=== PATIENT | male | born 1985 | race African-American/Black ===

== ENCOUNTER 2016-12-01 07:23 | Emergency (ER) | payer BC ==
[2016-12-01 07:30] VITALS: BMI 39.5
--- NOTE | 2016-12-01 09:08 | PDOC ---
History of Present Illness - General History Source: Patient Exam Limitations: No Limitations - History of Present Illness Initial Comments: 12/01/16 09:20 The patient is a 31 year old male, with a significant past medical history of HTN, who presents to the emergency department with fever, chills, chest tightness with congestion, shortness of breath, sore throat, and cough. He reports that he had a similar episode last week of these symptoms but this time around it was accompanied with fever and chills. 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 He notes that his fever has been as high as 99.8 degrees F. He describes his cough as productive of a yellow/green sputum. The patient denies headache and dizziness. Denies nausea, vomit, diarrhea and constipation. Allergies: None Past surgical history: None reported Social history:Cigarette use ( pack a day). <Piter Torres - Last Filed: 12/01/16 11:39> - General History Source: Patient Exam Limitations: No Limitations <Pallavi Cochran - Last Filed: 12/02/16 08:05> - General Chief Complaint: Cold Symptoms Stated Complaint: FEVER, RESPIRATORY Time Seen by Provider: 12/01/16 07:52 Past History <Piter Torres - Last Filed: 12/01/16 11:39> - Past Medical History HTN: Yes - Immunization History Td Vaccination: Yes Immunization Up to Date: Yes - Psycho/Social/Smoking Cessation Hx Anxiety: No Suicidal Ideation: No Smoking Status: Yes Smoking History: Current every day smoker Number of Cigarettes Smoked Daily: 10 Information on smoking cessation initiated: Yes 'Breaking Loose' booklet given: 12/01/16 Hx Alcohol Use: No Drug/Substance Use Hx: No Substance Use Type: None <Pallavi Cochran - Last Filed: 12/02/16 08:05> - Past Medical History Allergies/Adverse Reactions: Allergies Allergy/AdvReac Type Severity Reaction Status Date / Time No Known Allergies Allergy Verified 12/01/16 07:30 Home Medications: Ambulatory Orders Albuterol 0.083% Nebulizer Inez [Ventolin 0.083% Nebulizer Soln -] 1 neb NEB Q6H #30 vial 12/01/16 Albuterol Sulfate Inhaler - [Ventolin HFA Inhaler -] 1 - 2 inh PO QID PRN #1 inhaler 12/01/16 Amlodipine Besylate [Norvasc -] 0 mg PO ASDIR 12/01/16 Azithromycin [Zithromax 250mg Tablets -] 250 mg PO UTDICT #6 tab 12/01/16 Losartan Potassium 0 mg PO ASDIR 12/01/16 Nebulizer/Compressor [Comp-Air Elite Comp Nebulizer] 1 each MC ASDIR PRN #1 each 12/01/16 Prednisone [Deltasone -] 60 mg PO DAILY #12 tablet 12/01/16 Review of Systems - Review of Systems Able to Perform ROS?: Yes Comments:: 12/01/16 09:20 GENERAL/CONSTITUTIONAL: (+) fever and chills. No weakness. HEAD, EYES, EARS, NOSE AND THROAT: (+) Sore throat. No change in vision. No ear pain or discharge. CARDIOVASCULAR: (+) Chest congestion and shortness of breath RESPIRATORY: (+) Cough. No hemoptysis. GASTROINTESTINAL: No nausea, vomiting, diarrhea or constipation. GENITOURINARY: No dysuria, frequency, or change in urination. MUSCULOSKELETAL: No joint or muscle swelling or pain. No neck or back pain. SKIN: No rash NEUROLOGIC: No headache, vertigo, loss of consciousness, or change in strength/ sensation. ENDOCRINE: No increased thirst. No abnormal weight change HEMATOLOGIC/LYMPHATIC: No anemia, easy bleeding, or history of blood clots. ALLERGIC/IMMUNOLOGIC: No hives or skin allergy. <Piter Torres - Last Filed: 12/01/16 11:39> *Physical Exam - Vital Signs Last Vital Signs Temp Pulse Resp BP Pulse Ox 100.5 F H 99 H 18 152/85 97 12/01/16 07:29 12/01/16 07:29 12/01/16 07:29 12/01/16 07:29 12/01/16 07:29 - Physical Exam Comments: 12/01/16 09:20 GENERAL: Awake, alert, and fully oriented, in no acute distress HEAD: No signs of trauma, normocephalic, atraumatic EYES: PERRLA, EOMI, sclera anicteric, conjunctiva clear ENT: Auricles normal inspection, hearing grossly normal, nares patent, oropharynx clear without exudates. Moist mucosa NECK: Normal ROM, supple, no lymphadenopathy, JVD, or masses LUNGS: (+) Wheezing left lung field. No distress, speaks full sentences. HEART: Regular rate and rhythm, normal S1 and S2, no murmurs, rubs or gallops, peripheral pulses normal and equal bilaterally. ABDOMEN: Soft, nontender, normoactive bowel sounds. No guarding, no rebound. No masses EXTREMITIES: Normal inspection, Normal range of motion, no edema. No clubbing or cyanosis. NEUROLOGICAL: Cranial nerves II through XII grossly intact. Normal speech, normal gait, no focal sensorimotor deficits SKIN: Warm, Dry, normal turgor, no rashes or lesions noted. <Piter Torres - Last Filed: 12/01/16 11:39> - Vital Signs Last Vital Signs Temp Pulse Resp BP Pulse Ox 100.5 F H 99 H 18 152/85 97 12/01/16 07:29 12/01/16 07:29 12/01/16 07:29 12/01/16 07:29 12/01/16 07:29 <Pallavi Cochran - Last Filed: 12/02/16 08:05> ED Treatment Course - LABORATORY CBC & Chemistry Diagram: 12/01/16 09:40 12/01/16 09:40 - RADIOLOGY Radiograph Interpretation: 12/01/16 11:39 Chest X-Ray Reviewed by: Dr. Bhavani Benito Impression: Unremarkable examination without evidence of acute lung disease <Piter Torres - Last Filed: 12/01/16 11:39> - LABORATORY CBC & Chemistry Diagram: 12/01/16 09:40 12/01/16 09:40 <Pallavi Cochran - Last Filed: 12/02/16 08:05> Medical Decision Making - Medical Decision Making A portion of this note was documented by scribe services under my direction. I have reviewed the details of the note, within reason, and agree with the documentation with the following case summary and management plan written by me. Nursing documentation reviewed and incorporated into medical decision making 12/01/16 10:59 This patient is a 31-year-old male with a history of hypertension presented to emergency department with a complaint of shortness of breath and cough. Patient states that he had an episode similar to this week ago and it resolved. Over the last 2 days he has noted intermittent fevers and chills, cough productive of a yellow sputum. No chest pain. Patient does have chest tightness and wheezing. Patient does smoke (one half of a pack every other day) disease. This patient denies a history of asthma or COPD. Patient states he's had no ill contacts. No recent travel. Differential diagnosis: Bronchitis, pneumonia, COPD, asthma. Will do basic labs. Will do chest x-ray. Will give prednisone Will give a nebulizer her Last patient follow up with primary care physician Laboratory Tests 12/01/16 12/01/16 09:40 09:40 WBC 14.9 H D Hgb 14.8 Hct 45.0 Plt Count 189 Sodium 135 L Potassium 4.6 Chloride 100 BUN 15 Creatinine 1.4 H D Random Glucose 114 H Chest x-ray: Negative 12/01/16 12:10 Upon reassessment, patient states he feels better. Repeat examination: scattered respiratory rhonchi. Discharge home on prednisone, antibiotics, nebs, MDI inhaler. Will ask patient to follow up with his primary care physician within one week Return to the ER for any other concerns or complaints <Pallavi Cochran - Last Filed: 12/02/16 08:05> *DC/Admit/Observation/Transfer - Attestations Scribe Attestion: 12/01/16 09:21 Documentation prepared by Piter Torres, acting as medical scheduler for Pallavi Cochran MD <Piter Torres - Last Filed: 12/01/16 11:39> - Discharge Dispostion Admit: No <Pallavi Cochran - Last Filed: 12/02/16 08:05> Diagnosis at time of Disposition: Bronchitis Asthma Qualifiers: Asthma severity: unspecified severity Asthma complication type: with acute exacerbation Qualified Code(s): J45.901 - Unspecified asthma with (acute) exacerbation - Discharge Dispostion Disposition: HOME Condition at time of disposition: Stable - Prescriptions Prescriptions: Nebulizer/Compressor [Comp-Air Elite Comp Nebulizer] 1 each MC ASDIR PRN #1 each PRN Reason: congestion Prednisone [Deltasone -] 60 mg PO DAILY #12 tablet Albuterol 0.083% Nebulizer Inez [Ventolin 0.083% Nebulizer Soln -] 1 neb NEB Q6H #30 vial Albuterol Sulfate Inhaler - [Ventolin HFA Inhaler -] 1 - 2 inh PO QID PRN #1 inhaler PRN Reason: Wheezing Azithromycin [Zithromax 250mg Tablets -] 250 mg PO UTDICT #6 tab - Referrals Referrals: Alexei Gallegos MD [Primary Care Provider] - - Patient Instructions Printed Discharge Instructions: DI for Viral Upper Respiratory Infection -- Adult, DI for Acute Bronchitis, DI for Asthma -- Adult Additional Instructions: Mr. Roquetton, Thank you for coming into the emergency Department today. Please take medications as prescribed. Please monitor herself for difficulty breathing, chest tightness, shortness of breath. Please return to emergency department for any other concerns or complaint. You should follow up with your primary care physician within 2 or 3 days - Post Discharge Activity Work/School Note: Back to Work
[2016-12-01] MEDS ORDERED: ALBUTEROL SO4 2.5/IPRATROPIUM 0.5 INH SOL 3 ML VIAL.NEB. NEB ONE ×2 (09:12→09:45)
[2016-12-01] MEDS ORDERED: predniSONE 20 MG TABLET (UD) PO ONE (09:12)
[2016-12-01 09:45] LABS: BASOPHIL 0.7 % (0-2.0); EOSINOPHIL 2.7 % (0-4.5); MCH 28.6 pg (25.7-33.7); MEAN CELL VOLUME 86.8 fl (80-96); MEAN PLT VOLUME 8.2 fl (7.5-11.1); NEUTROPHILS 70.9 % (42.8-82.8); PLATELET COUNT 189 K/MM3 (134-434); RDW 13.1 % (11.9-15.9); WHITE BLOOD COUNT 14.9 K/mm3 (4.0-10.0)
[2016-12-01] MEDS ORDERED: predniSONE 20 MG TABLET (UD) ONE (09:45)
[2016-12-01 10:08] LABS: ALBUMIN 3.7 g/dl (3.4-5.0); BILIRUBIN,TOTAL 0.5 mg/dL (0.2-1.0); CALCIUM 9.1 mg/dL (8.5-10.1); COCKROFT - GAULT 126.35; CREATININE 1.4 mg/dL (0.7-1.3); TOT PROT 7.5 g/dl (6.4-8.2)
[2016-12-01 12:45] VITALS: BP 155/90; PULSE 82; TEMP 98.2
== END 2016-12-01 12:45 | disposition home or self-care (01) ==
LOC: JER 07:23
PROC: 3E0F7GC Introduction of Other Therapeutic Substance into Respiratory Tract, Via Natural or Artificial Opening (ICD-10-PCS; principal; 2016-12-01)
DX: J45.901 Unspecified asthma with (acute) exacerbation (principal); J40 Bronchitis, not specified as acute or chronic; I10 Essential (primary) hypertension
CPT/HCPCS: 36415; 71020-TC; 80053; 85025; 99283-25

== ENCOUNTER 2017-05-30 22:31 | Inpatient (IN) | payer BC ==
[2017-05-30 22:41] VITALS: BMI 39.5
--- NOTE | 2017-05-30 23:18 | PDOC ---
History of Present Illness - General Chief Complaint: Pain Stated Complaint: PAIN Time Seen by Provider: 05/30/17 23:08 History Source: Patient Exam Limitations: No Limitations - History of Present Illness Initial Comments: This is a 32 YOM with h/o HTN (on amlodipine and losartan) and tobacco use (1/2 ppd smoker) who p/w left lower leg pain for the past day. He notes sharp shooting pain from the back of the left knee radiating down the entire back of the leg. He had swelling of the entire left lower leg yesterday as well. He has had similar symptoms once previously but this was self limited and resolved without medical intervention or consultation, but this time it is worse and lasting longer. He notes a fleeting episode of chest pain two days ago, a random episode of dizziness while at work over the past couple of days (very atypical for him), as well as a strange episode of bilateral arm pain which awoke him from sleep two weeks ago, but he denies any current chest pain. He also denies any current or recent SOB, palpitations, headache, LOC, fever, chills, nausea, vomiting, diarrhea, cough, sore throat, or other symptoms. His father has an extensive history of blood clots in the legs which traveled to the lungs. His father's condition is debilitating enough it caused him to retire early for medical reasons. The patient has never been worked up or diagnosed with any clotting disorder. He denies any hormone use or any recent travel/immobility/injuries/surgeries. Past History - Past Medical History Allergies/Adverse Reactions: Allergies Allergy/AdvReac Type Severity Reaction Status Date / Time lactose AdvReac Verified 06/07/17 18:40 Home Medications: Ambulatory Orders Amlodipine Besylate [Norvasc -] 10 mg PO DAILY 05/30/17 Losartan Potassium [Cozaar -] 50 mg PO BID #60 tablet 06/07/17 Warfarin Na [Coumadin -] 7.5 mg PO DAILY@1800 #30 tablet 06/07/17 COPD: No HTN: Yes - Immunization History Td Vaccination: Yes Immunization Up to Date: Yes - Suicide/Smoking/Psychosocial Hx Smoking Status: Yes Smoking History: Current every day smoker Number of Cigarettes Smoked Daily: 10 Information on smoking cessation initiated: No 'Breaking Loose' booklet given: 12/01/16 Hx Alcohol Use: No Drug/Substance Use Hx: No Substance Use Type: None Review of Systems - Review of Systems Constitutional: No: Chills, Fever, Unexplained wgt Loss HEENTM: No: Nose Congestion, Throat Pain Respiratory: No: Cough, Shortness of Breath Cardiac (ROS): Yes: Chest Pain (resolved). No: Palpitations ABD/GI: No: Constipated, Diarrhea, Nausea, Vomiting : No: Burning, Dysuria Musculoskeletal: Yes: Other (LLE pain and swelling). No: Back Pain, Neck Pain Integumentary: No: Bruising, Rash Neurological: Yes: Dizziness (resolved). No: Headache, Numbness, Tingling, Weakness Endocrine: No: Unexplained Weight Gain, Unexplained Weight Loss *Physical Exam - Vital Signs Last Vital Signs Temp Pulse Resp BP Pulse Ox 98.2 F 90 18 152/93 99 05/30/17 22:39 05/30/17 22:39 05/30/17 22:39 05/30/17 22:39 05/30/17 22:39 - Physical Exam General Appearance: Yes: Nourished, Appropriately Dressed, Obese, Other (alert and appropriate adult male who is conversive, pleasant, accompanied by significant other). No: Apparent Distress HEENT: positive: EOMI, Normal Voice, Hearing Grossly Normal. negative: Scleral Icterus (R), Scleral Icterus (L), Nasal Congestion Neck: positive: Trachea midline, Supple. negative: Tender, Rigid Respiratory/Chest: positive: Lungs Clear, Normal Breath Sounds. negative: Respiratory Distress, Crackles, Rhonchi, Stridor, Wheezing Cardiovascular: positive: Regular Rhythm, Regular Rate. negative: Murmur Vascular Pulses: Femoral (R): 2+, Femoral (L): 2+, Dorsalis-Pedis (R): 2+, Doralis-Pedis (L): 2+ Gastrointestinal/Abdominal: positive: Normal Bowel Sounds, Soft. negative: Tender, Organomegaly, Pulsatile Mass, Guarding Musculoskeletal: positive: Normal Inspection. negative: Decreased Range of Motion, Vertebral Tenderness Extremity: positive: Normal Capillary Refill, Normal Inspection, Normal Range of Motion, Other (mild left calf tenderness to palpation, no palpable cord). negative: Tender, Cyanosis, Swelling Integumentary: positive: Normal Color, Dry, Warm. negative: Erythema, Rash, Bruising Neurologic: positive: physicist cryogenics II-XII NML intact, Fully Oriented, Alert, Normal Mood/ Affect, Normal Response, Motor Strength 11/06 ED Treatment Course - LABORATORY CBC & Chemistry Diagram: 06/07/17 06:50 06/07/17 06:50 - RADIOLOGY Radiology Studies Ordered: Category Date Time Status DUPLEX VASCUL US-1 LEG [US] Stat Ultrasound 05/30/17 23:09 Ordered Medical Decision Making - Medical Decision Making 32 YOM with family history of extensive DVT and PE who presents c/o LLE pain/ swelling. VS within normal limits, left popliteal and posterior calf ttp on exam which is mild. DDX IBNLT DVT, mackey cyst, stress fracture, muscle strain/sprain, claudication, etc. Ordered is Duplex study LLE. 05/30/17 23:39 Spoke with ultrasound who notes extensive DVT LLE from popliteal fossa extending distally. Patient will be admitted for monitoring, further workup, heparin, additional labs drawn. Started Heparin bolus + drip, did EKG. 05/31/17 00:[address] Simmons's office and page is sent to on-call. 05/31/17 01:[address] Simmons who agrees with plan for admission to IP Telemetry. Admission order placed as noted above. 05/31/17 02:22 Pt had fleeting episode of diffuse itchiness after returning from CTA. Benadryl 50 mg IV ordered and given. Awaiting official CTA results. Numerous pulmonary emboli noted on chest CTA. Patient awaiting tele bed. Care signed out to oncoming resident at the end of my shift. *DC/Admit/Observation/Transfer Diagnosis at time of Disposition: DVT (deep venous thrombosis) Qualifiers: DVT location: lower extremity Affected thrombotic vein of extremity: popliteal Chronicity: unspecified Laterality: left Qualified Code(s): I82.432 - Acute embolism and thrombosis of left popliteal vein - Discharge Dispostion Condition at time of disposition: Guarded Admit: Yes - Prescriptions - Referrals - Patient Instructions - Post Discharge Activity
[2017-05-31] MEDS ORDERED: HEPARIN NA (PORCINE) 5,000 UNITS/ML 1ML VIAL IVPUSH PRN (00:07)
[2017-05-31] MEDS ORDERED: HEPARIN INFUSION - 25,000 UNITS/500 ML INFUS.BAG IVPB ONE (00:13)
[2017-05-31] MEDS: HEPARIN - 25,000 UNIT in SODIUM CHLORIDE 495 ML IV SCH ×2 (00:24→10:44)
[2017-05-31 00:35] LABS: BASOPHIL 0.5 % (0-2.0); EOSINOPHIL 4.8 % (0-4.5); MCH 29.8 pg (25.7-33.7); MCHC 33.9 g/dl (32.0-35.9); NEUTROPHILS 54.5 % (42.8-82.8); PLATELET COUNT 191 K/MM3 (134-434); RDW 13.9 % (11.9-15.9); WHITE BLOOD COUNT 10.8 K/mm3 (4.0-10.0)
[2017-05-31 00:58] LABS: ALBUMIN 3.7 g/dl (3.4-5.0); ANION GAP 10 (8-16); BILIRUBIN,TOTAL 0.3 mg/dL (0.2-1.0); CALCIUM 8.8 mg/dL (8.5-10.1); CO2 28 mmol/L (21-32); CREATININE 1.1 mg/dL (0.7-1.3); GLUCOSE,RANDOM 119 mg/dL (74-106); SGPT/ALT 25 U/L (12-78); TOT PROT 7.1 g/dl (6.4-8.2)
[2017-05-31 00:59] LABS: ALK PHOS 75 U/L (45-117); SGOT/AST 20 U/L (15-37)
[2017-05-31 01:11] LABS: INR 1.06 (0.82-1.09)
--- NOTE | 2017-05-31 08:06 | CON.NEP ---
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) History of Recent Travel: No Home Medications - Allergies Allergies/Adverse Reactions: Allergies Allergy/AdvReac Type Severity Reaction Status Date / Time No Known Allergies Allergy Verified 05/30/17 22:37 - Home Medications Home Medications: Ambulatory Orders Amlodipine Besylate [Norvasc -] 10 mg PO DAILY 05/30/17 Losartan Potassium [Cozaar -] 50 mg PO DAILY 05/30/17 Review of Systems Unable to obtain ROS, reason: no CP no SOB Nephrology Consult - Height Height: 5 ft 8 in - Weight Weight: 260 lb - BMI Body Mass Index (BMI): 39.5 - Lab Results CBC,BMP: CBC, BMP 05/31/17 00:01 05/31/17 00:01 Anion Gap: Anion Gap Anion Gap 10 (8-16) 05/31/17 00:01 - Imaging Ultrasound: Report Reviewed - Physical Examination Vital Signs: Vital Signs Temperature 98.2 F 05/30/17 22:39 Pulse Rate 90 05/30/17 22:39 Respiratory Rate 18 05/30/17 22:39 Blood Pressure 152/93 05/30/17 22:39 O2 Sat by Pulse Oximetry (%) 99 05/30/17 22:39 Edema: LLE: 2+ Assessment/Plan 32 with DVT Add hypercoagulable wup to first admission labs ON IV heparin ASsess is he would be a candidate for eliquis MUST STOP SMOKING HTN REsume losartan and norvasc Space out meds one drug must be dosed at night Check UA
--- NOTE | 2017-05-31 09:03 | HP ---
Admitting History and Physical - Primary Care Physician PCP: Es Sanders - Admission Chief Complaint: LEG SWELLING History of Present Illness: left calf pain and swelling for 2 days, has been otherwise in his usual state of health. 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 History of Recent Travel: No Home Medications - Allergies Allergies/Adverse Reactions: Allergies Allergy/AdvReac Type Severity Reaction Status Date / Time No Known Allergies Allergy Verified 05/30/17 22:37 - Home Medications Home Medications: Ambulatory Orders Amlodipine Besylate [Norvasc -] 10 mg PO DAILY 05/30/17 Losartan Potassium [Cozaar -] 50 mg PO DAILY 05/30/17 Family Disease History - Family Disease History Family Disease History: Other: Father (pulmonary embolism) Review of Systems - Review of Systems Constitutional: reports: No Symptoms HENT: reports: Gingival Bleeding Neck: reports: No Symptoms Cardiovascular: reports: No Symptoms Respiratory: reports: No Symptoms Gastrointestinal: reports: No Symptoms Genitourinary: reports: No Symptoms Musculoskeletal: reports: Extremity Pain (left leg) Endocrine: reports: No Symptoms Hematology/Lymphatic: reports: No Symptoms Psychiatric: reports: No Symptoms Physical Examination Vital Signs: Vital Signs Temperature 98.0 F 05/31/17 08:29 Pulse Rate 80 05/31/17 08:29 Respiratory Rate 20 05/31/17 08:29 Blood Pressure 155/90 05/31/17 08:29 O2 Sat by Pulse Oximetry (%) 99 05/31/17 08:29 Constitutional: Yes: Well Nourished, Calm Eyes: Yes: EOM Intact HENT: Yes: Normocephalic Neck: Yes: Trachea Midline Cardiovascular: Yes: Regular Rate and Rhythm Respiratory: Yes: CTA Bilaterally Gastrointestinal: Yes: Normal Bowel Sounds, Soft Renal/: Yes: WNL Edema: Yes Edema: LLE: 1+ (pedal and calf swelling with tenderness) Peripheral Pulses WNL: Yes Peripheral Pulses: Left Doralis Pedis: 2+, Right Dorsalis Pedis: 2+ Integumentary: Yes: WNL Neurological: Yes: WNL ...Motor Strength: WNL Psychiatric: Yes: WNL Labs: CBC, BMP 05/31/17 00:01 05/31/17 00:01 Abnormal Lab Results 05/31/17 05/31/17 05/31/17 00:01 00:01 00:01 WBC 10.8 H Eosinophils % 4.8 H PT with INR 12.00 H D-Dimer 2117 H Random Glucose 05/31/17 00:01 WBC Eosinophils % PT with INR D-Dimer Random Glucose 119 H Imaging - Results Ultrasound: Report Reviewed Problem List - Problems (1) DVT (deep venous thrombosis) Code(s): I82.409 - ACUTE EMBOLISM AND THOMBOS UNSP DEEP VN UNSP LOWER EXTREMITY Qualifiers: DVT location: lower extremity Affected thrombotic vein of extremity: popliteal Chronicity: unspecified Laterality: left Qualified Code(s): I82.432 - Acute embolism and thrombosis of left popliteal vein (2) Essential hypertension Code(s): I10 - ESSENTIAL (PRIMARY) HYPERTENSION Assessment/Plan iv heparin and hypercoagulable work up-unprovoked DVT and strong family h/o clots hematology evaluation for warfarin vs. NOAC f/up chest ct r/o PE MRSA screen in view of h/o MRSA skin abscess-no wound at present
[2017-05-31] MEDS: amLODIPine BESYLATE 10 MG TABLET (FP) PO SCH (10:02)
--- NOTE | 2017-05-31 13:23 | PN ---
Teaching Attending Note Name of Resident: Mook Alba ATTENDING PHYSICIAN STATEMENT I saw and evaluated the patient. I reviewed the resident's note and discussed the case with the resident. I agree with the resident's findings and plan as documented. PULMONARY IMP BILATERAL PULMONARY EMBOLI/DVT ? UNPROVOKED HTN LIKELY OSAS SMOKER PLAN AC ECHOCARDIOGRAM CARDIAC ENZYMES W/U FOR HYPERCOAGULABLE STATE SLEEP SCREEN SMOKING CESSATION COUNSELED DR RODRIGUEZ Problem List - Problems (1) Tobacco abuse Code(s): Z72.0 - TOBACCO USE (2) Tobacco abuse counseling Code(s): Z71.6 - TOBACCO ABUSE COUNSELING (3) DVT (deep venous thrombosis) Code(s): I82.409 - ACUTE EMBOLISM AND THOMBOS UNSP DEEP VN UNSP LOWER EXTREMITY Qualifiers: DVT location: lower extremity Affected thrombotic vein of extremity: popliteal Chronicity: unspecified Laterality: left Qualified Code(s): I82.432 - Acute embolism and thrombosis of left popliteal vein (4) Pulmonary embolism Code(s): I26.99 - OTHER PULMONARY EMBOLISM WITHOUT ACUTE COR PULMONALE
--- NOTE | 2017-05-31 14:01 | EKG ---
Test Reason : Blood Pressure : / mmHG Vent. Rate : 080 BPM Atrial Rate : 357 BPM P-R Int : 000 ms QRS Dur : 094 ms QT Int : 376 ms P-R-T Axes : 075 015 016 degrees QTc Int : 433 ms SINUS RHYTHM NONSPECIFIC ST ABNORMALITY WHEN COMPARED WITH ECG OF 17-JUL-2013 23:31, NO SIGNIFICANT CHANGE WAS FOUND Confirmed by MISTI MARTÍNEZ MD ([id number]) on 05/31/2017 2:00:38 PM Referred By: Confirmed By:MISTI MARTÍNEZ MD
--- NOTE | 2017-05-31 17:55 | CON.PULM ---
Consult Consult Specialty:: Pulmonary Reason for Consultation:: we were called to evaluate the patient for DVT and b/ l PE - History of Present Illness Chief Complaint: Right leg swelling History of Present Illness: The patient is a 32 yo m w/ PMH HTN who comes into the ED c/o right leg pain and swelling for the past 1 day. In the ED, doppler of the LE showed DVT in the popliteal and posterior tibial veins. CTA of the chest showed B/L pulmonary embolisms worse in the lower lobes. The patient has been placed on a heparin drip and admited for furhter workup. On examination, patient states he feels "fine" without any complaints. The pain in his leg which he says is improved after administration of percocet. Patient denies CP, SOB, recent travel, recent surgery, recent immobility. 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 Patient's father had an extensive history of blood clots and pulmonary embolisms, necessitating placement of an IVC filter. 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: drafter construction History of Recent Travel: No Home Medications - Allergies Allergies/Adverse Reactions: Allergies Allergy/AdvReac Type Severity Reaction Status Date / Time No Known Allergies Allergy Verified 05/30/17 22:37 - Home Medications Home Medications: Ambulatory Orders Amlodipine Besylate [Norvasc -] 10 mg PO DAILY 05/30/17 Losartan Potassium [Cozaar -] 50 mg PO DAILY 05/30/17 Family Disease History - Family Disease History Family Disease History: Other: Father (pulmonary embolism, DVT) Review of Systems - Review of Systems Constitutional: denies: Chills, Fever, Malaise, Weakness Cardiovascular: denies: Chest Pain, Palpitations, Shortness of Breath Respiratory: denies: Cough, Hemoptysis, SOB Gastrointestinal: denies: Abdominal Pain, Diarrhea, Nausea, Vomiting Physical Exam Vital Sings: Vital Signs Temperature 98.0 F 05/31/17 14:54 Pulse Rate 79 05/31/17 14:54 Respiratory Rate 18 05/31/17 14:54 Blood Pressure 145/80 05/31/17 14:54 O2 Sat by Pulse Oximetry (%) 98 05/31/17 14:54 Constitutional: Yes: Well Nourished, No Distress, Calm HENT: Yes: Atraumatic, Normocephalic Neck: Yes: Supple, Trachea Midline Cardiovascular: Yes: Regular Rate and Rhythm, S1, S2. No: JVD, Gallop, Murmur, Rub, S3, S4 Respiratory: Yes: Regular, CTA Bilaterally ...Breath Sounds: AURELIA Clear, LLL Clear, RUL Clear, RML Clear, RLL Clear Extremities: Yes: Calf Tenderness, Other (warmth and swelling over right lower extermity. Varicosity can be felt over the surface of the limb. ) Edema: Yes Edema: RLE: 1+ Neurological: Yes: Alert, Oriented Psychiatric: Yes: Alert, Oriented Labs: CBC, BMP 05/31/17 00:01 05/31/17 00:01 Assessment/Plan The patient is a 32 yo m w/ PMH HTN who is admitted for the treatment of DVT and b/l PEs. Patient has a family history of hypercoagulable states and denies any risk factors other than smoking. #DVT and PE -Heparin GTT -Trend troponins -Echo -LISBETH screen -patient counseled on smoking cessation -further workup is needed to determine the eitology of the DVT. A positive family history is concerning for an inherited condition. -agree w/ Heme-Onc consult.
[2017-05-31] MEDS ORDERED: LOSARTAN POTASSIUM 25 MG TABLET ONE (18:10)
[2017-05-31] MEDS: LOSARTAN POTASSIUM 50 MG TABLET (FP) PO SCH (18:18)
--- NOTE | 2017-05-31 19:48 | CONSULT ---
Consult - text type - Consultation Consultation Note: patient is a 32 yo m w/ PMH HTN who comes into the ED c/o right leg pain and swelling for the past 1 day. In the ED, doppler of the LE showed DVT in the popliteal and posterior tibial veins. CTA of the chest showed B/L pulmonary embolisms worse in the lower lobes. The patient has been placed on a heparin drip and admited for furhter workup. On examination, patient states he feels "fine" without any complaints. The pain in his leg which he says is improved after administration of percocet. Patient denies CP, SOB, recent travel, recent surgery, recent immobility. 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 Patient's father had an extensive history of blood clots and pulmonary embolisms, necessitating placement of an IVC filter. 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 Home Medications - Allergies Allergies/Adverse Reactions: Allergies Allergy/AdvReac Type Severity Reaction Status Date / Time No Known Allergies Allergy Verified 05/30/17 22:37 - Home Medications Home Medications: Ambulatory Orders Amlodipine Besylate [Norvasc -] 10 mg PO DAILY 05/30/17 Losartan Potassium [Cozaar -] 50 mg PO DAILY 05/30/17 Family Disease History - Family Disease History Family Disease History: Other: Father (pulmonary embolism, DVT) Physical Exam Vital Sings: Last Vital Signs Temp Pulse Resp BP Pulse Ox 98.0 F 79 18 145/80 98 05/31/17 14:54 05/31/17 14:54 05/31/17 14:54 05/31/17 14:54 05/31/17 14:54 Cor: RSR, No murmurs, No gallops Lungs: Clear to P&A Abd: Soft, Normal bowel sounds, No organomegaly Ext:No significant edema Skin: No rashes, Integument intact Abnormal Lab Results 05/31/17 05/31/17 05/31/17 00:01 00:01 00:01 WBC 10.8 H Eosinophils % 4.8 H PT with INR 12.00 H PTT (Actin FS) D-Dimer 2117 H Random Glucose 05/31/17 05/31/17 05/31/17 00:01 09:12 17:35 WBC Eosinophils % PT with INR PTT (Actin FS) 43.2 H D 42.5 H D-Dimer Random Glucose 119 H Ambulatory Orders Amlodipine Besylate [Norvasc -] 10 mg PO DAILY 05/30/17 Losartan Potassium [Cozaar -] 50 mg PO DAILY 05/30/17 Assessment/Plan The patient is a 32 yo m w/ PMH HTN who is admitted for the treatment of DVT and b/l PEs. Patient has a family history of hypercoagulable states and denies any risk factors other than smoking. Unprovoked DVT/PE Discussed pros/cons of various anticoagulation options Discussed that data is lacking in patients with BMI >40 for NOACS. discussed lack of antidote with NOACs Discussed bridging heparin to coumadin vs lovenox to coumadin. discussed INR monitoring and drug-drug/ drug-food interactions with coumadin He understands the options,pros and cons He is to decide thrombophilia w/u as outpatient
[2017-05-31 22:41] LABS: CPK 188 IU/L (39-308); TROPONIN I < 0.02 ng/ml (0.00-0.05)
[2017-06-01] MEDS: HEPARIN - 25,000 UNIT in SODIUM CHLORIDE 495 ML IV SCH ×3 (01:18→20:00)
[2017-06-01 04:55] LABS: BASOPHIL 0.8 % (0-2.0); EOSINOPHIL 7.1 % (0-4.5); MCH 29.7 pg (25.7-33.7); MCHC 33.7 g/dl (32.0-35.9); MEAN CELL VOLUME 88.1 fl (80-96); MEAN PLT VOLUME 8.5 fl (7.5-11.1); NEUTROPHILS 43.5 % (42.8-82.8); PLATELET COUNT 189 K/MM3 (134-434); RDW 13.9 % (11.9-15.9); WHITE BLOOD COUNT 8.6 K/mm3 (4.0-10.0)
[2017-06-01 05:17] LABS: ALBUMIN 3.1 g/dl (3.4-5.0); ALK PHOS 63 U/L (45-117); ANION GAP 4 (8-16); BILIRUBIN,TOTAL 0.5 mg/dL (0.2-1.0); CALCIUM 8.7 mg/dL (8.5-10.1); CO2 31 mmol/L (21-32); CREATININE 1.2 mg/dL (0.7-1.3); GLUCOSE,RANDOM 117 mg/dL (74-106); SGOT/AST 11 U/L (15-37); SGPT/ALT 20 U/L (12-78); TOT PROT 6.6 g/dl (6.4-8.2)
[2017-06-01] MEDS ORDERED: HEPARIN NA (PORCINE) 5,000 UNITS/ML 1ML VIAL IVPUSH PRN ×4 (05:39→18:29)
[2017-06-01 07:30] LABS: INR 1.04 (0.82-1.09); PROTHROMBIN TIME (PATIENT) 11.8 SEC (9.98-11.88)
--- NOTE | 2017-06-01 09:39 | PN ---
Progress Note (short form) - Note Progress Note: bilateral pulmonary embolism/left lower extremity DVT-unprovoked on iv heparin monitor nsr echo normal no chest pain or dyspnea CBC, BMP 06/01/17 04:45 06/01/17 04:45 Vital Signs Period Temp Pulse Resp BP Sys/Motley Pulse Ox Last 24 Hr 98.0 F-99.4 F 69-79 18-20 140-156/76-97 98-98 S1S2 RRR lungs cta abd soft NT left ankle edema persists IMP bilateral pulmonary embolism/left lower extremity DVT-unprovoked HTN Plan d/w pt and at length, his weight puts him into questionable efficacy with xarelto will start warfarin tonight and monitor Problem List - Problems (1) DVT (deep venous thrombosis) Code(s): I82.409 - ACUTE EMBOLISM AND THOMBOS UNSP DEEP VN UNSP LOWER EXTREMITY Qualifiers: DVT location: lower extremity Affected thrombotic vein of extremity: popliteal Chronicity: unspecified Laterality: left Qualified Code(s): I82.432 - Acute embolism and thrombosis of left popliteal vein (2) Essential hypertension Code(s): I10 - ESSENTIAL (PRIMARY) HYPERTENSION
[2017-06-01] MEDS: amLODIPine BESYLATE 10 MG TABLET (FP) PO SCH (09:52)
[2017-06-01] MEDS: LOSARTAN POTASSIUM 50 MG TABLET (FP) PO SCH ×2 (09:52→21:45)
--- NOTE | 2017-06-01 10:24 | PN ---
Teaching Attending Note Name of Resident: Mook Alba ATTENDING PHYSICIAN STATEMENT I saw and evaluated the patient. I reviewed the resident's note and discussed the case with the resident. I agree with the resident's findings and plan as documented. PULMONARY PT COMFORTABLE,NAD,-CP,-SOB. HEME CONSULT NOTED. ECHO NORMAL. IMP BILATERAL PULMONARY EMBOLI/DVT ? UNPROVOKED HTN LIKELY OSAS SMOKER PLAN AC W/U FOR HYPERCOAGULABLE STATE SLEEP SCREEN SMOKING CESSATION COUNSELED DR RODRIGUEZ Problem List - Problems (1) Tobacco abuse Code(s): Z72.0 - TOBACCO USE (2) Tobacco abuse counseling Code(s): Z71.6 - TOBACCO ABUSE COUNSELING (3) DVT (deep venous thrombosis) Code(s): I82.409 - ACUTE EMBOLISM AND THOMBOS UNSP DEEP VN UNSP LOWER EXTREMITY Qualifiers: DVT location: lower extremity Affected thrombotic vein of extremity: popliteal Chronicity: unspecified Laterality: left Qualified Code(s): I82.432 - Acute embolism and thrombosis of left popliteal vein (4) Pulmonary embolism Code(s): I26.99 - OTHER PULMONARY EMBOLISM WITHOUT ACUTE COR PULMONALE Problem List - Problems (1) Tobacco abuse Code(s): Z72.0 - TOBACCO USE (2) Tobacco abuse counseling Code(s): Z71.6 - TOBACCO ABUSE COUNSELING (3) DVT (deep venous thrombosis) Code(s): I82.409 - ACUTE EMBOLISM AND THOMBOS UNSP DEEP VN UNSP LOWER EXTREMITY Qualifiers: DVT location: lower extremity Affected thrombotic vein of extremity: popliteal Chronicity: unspecified Laterality: left Qualified Code(s): I82.432 - Acute embolism and thrombosis of left popliteal vein (4) Pulmonary embolism Code(s): I26.99 - OTHER PULMONARY EMBOLISM WITHOUT ACUTE COR PULMONALE
--- NOTE | 2017-06-01 12:11 | PN ---
Progress Note, Physician History of Present Illness: Patient seen and examined at bedside. His breathing is at his baseline with no major change and no new complaints. The pain in his leg is improving and is controlled with percocet. - Current Medication List Current Medications: Active Medications Amlodipine Besylate (Norvasc -) 10 mg PO DAILY [facility] Last Admin: 06/01/17 09:52 Dose: 10 mg Heparin Sodium (Porcine) (Heparin -) 5,000 unit IVPUSH PRN PRN PRN Reason: Heparin Heparin Sodium (Porcine) (Heparin -) 1,000 unit IVPUSH PRN PRN Heparin Sodium (Porcine) 25, (000 unit/ Sodium Chloride) 500 mls @ 20 mls/hr IV TITR GERMAN; 1,000 UNIT/HR PRN Reason: Protocol Last Admin: 06/01/17 07:15 Dose: 1,200 unit/hr, 24 mls/hr Losartan Potassium (Cozaar -) 50 mg PO DAILY [facility] Last Admin: 06/01/17 09:52 Dose: 50 mg Oxycodone/Acetaminophen (Percocet 5/325 -) 2 combo PO Q6H PRN PRN Reason: PAIN LEVEL 6-10 Last Admin: 06/01/17 04:56 Dose: 2 combo Warfarin Sodium (Coumadin -) 10 mg PO DAILY@1800 [facility] - Objective Vital Signs: Vital Signs Temperature 99.4 F 06/01/17 07:19 Pulse Rate 69 06/01/17 07:19 Respiratory Rate 20 06/01/17 08:45 Blood Pressure 150/93 06/01/17 07:19 O2 Sat by Pulse Oximetry (%) 98 06/01/17 08:45 Constitutional: Yes: Well Nourished, No Distress, Calm HENT: Yes: Atraumatic, Normocephalic Neck: Yes: Supple, Trachea Midline Cardiovascular: Yes: Regular Rate and Rhythm, S1, S2. No: Bruit, JVD, Gallop, Murmur, Rub, S3, S4 Respiratory: Yes: Regular, CTA Bilaterally Extremities: Yes: Other (warmth and swelling of left leg improved today. There are less tortuous superficial veins felt today.) Edema: Yes Labs: CBC, BMP 06/01/17 04:45 06/01/17 04:45 INR, PTT INR 1.04 (0.82-1.09) 06/01/17 06:50 Assessment/Plan The patient is a 32 yo m w/ PMH HTN who is admitted for the treatment of DVT and b/l PEs. Patient has a family history of hypercoagulable states and denies any risk factors other than smoking. #DVT and PE -Heparin GTT -Echo WNL -LISBETH screen -patient counseled on smoking cessation -Heme-Onc agrees w/ AC and recommends outpatient thrombophilia workup once stable
[2017-06-01] MEDS: WARFARIN NA 10 MG TABLET (FP) PO SCH ×2 (12:45→18:28)
--- NOTE | 2017-06-01 19:27 | PN ---
Progress Note (short form) - Note Progress Note: NEPHROLOGY F/U. 32 year old patient with history of hypertension admitted with bilateral pulmomary embolism and deep vein thrombosis of the left lower extremity. Patient is presently on heparin drip and oral warfarin pending therapeutic INR. Work up for hypercoagulable state in progress given family history. Vitals: Vital Signs - 24 hr 06/01/17 06/01/17 06/01/17 01:22 03:00 07:19 Temperature 99.1 F 99.4 F Pulse Rate 72 Pulse Rate [ 69 Left Radial] Respiratory 18 20 Rate Blood Pressure 156/97 Blood Pressure 150/93 [Left Arm] O2 Sat by Pulse 98 Oximetry (%) 06/01/17 06/01/17 06/01/17 08:45 12:00 12:32 Temperature 98.7 F Pulse Rate 87 Pulse Rate [ Left Radial] Respiratory 20 18 Rate Blood Pressure 153/75 Blood Pressure [Left Arm] O2 Sat by Pulse 98 97 Oximetry (%) Lungs: good air entry into both lung hawkins Heart: s1 s2 regular, no gallop Ext: Mild to moderate discomfort in the left calf. Neuro: No focality Labs: CBC,CMP WBC 8.6 K/mm3 (4.0-10.0) 06/01/17 04:45 RBC 4.83 M/mm3 (4.00-5.60) 06/01/17 04:45 Hgb 14.3 GM/dL (11.7-16.9) 06/01/17 04:45 Hct 42.5 % (35.4-49) 06/01/17 04:45 MCV 88.1 fl (80-96) 06/01/17 04:45 MCH 29.7 pg (25.7-33.7) 06/01/17 04:45 MCHC 33.7 g/dl (32.0-35.9) 06/01/17 04:45 RDW 13.9 % (11.9-15.9) 06/01/17 04:45 Plt Count 189 K/MM3 (134-434) 06/01/17 04:45 MPV 8.5 fl (7.5-11.1) 06/01/17 04:45 Neutrophils % 43.5 % (42.8-82.8) D 06/01/17 04:45 Lymphocytes % 38.5 % (8-40) D 06/01/17 04:45 Monocytes % 10.1 % (3.8-10.2) 06/01/17 04:45 Eosinophils % 7.1 % (0-4.5) H 06/01/17 04:45 Basophils % 0.8 % (0-2.0) 06/01/17 04:45 Sodium 137 mmol/L (136-145) 06/01/17 04:45 Potassium 4.3 mmol/L (3.5-5.1) 06/01/17 04:45 Chloride 102 mmol/L (98-107) 06/01/17 04:45 Carbon Dioxide 31 mmol/L (21-32) 06/01/17 04:45 Anion Gap 4 (8-16) L 06/01/17 04:45 BUN 12 mg/dL (7-18) 06/01/17 04:45 Creatinine 1.2 mg/dL (0.7-1.3) 06/01/17 04:45 Creat Clearance w eGFR > 60 (>60) 06/01/17 04:45 Random Glucose 117 mg/dL (74-106) H 06/01/17 04:45 Calcium 8.7 mg/dL (8.5-10.1) 06/01/17 04:45 Total Bilirubin 0.5 mg/dL (0.2-1.0) D 06/01/17 04:45 AST 11 U/L (15-37) L D 06/01/17 04:45 ALT 20 U/L (12-78) 06/01/17 04:45 Alkaline Phosphatase 63 U/L (45-117) 06/01/17 04:45 Creatine Kinase 188 IU/L (39-308) 05/31/17 15:00 Creatine Kinase Index 0.5 % (0.0-5.0) 05/31/17 15:00 CK-MB (CK-2) < 1.000 ng/mL (0.5-3.6) 05/31/17 15:00 Troponin I < 0.02 ng/ml (0.00-0.05) 05/31/17 15:00 Total Protein 6.6 g/dl (6.4-8.2) 06/01/17 04:45 Albumin 3.1 g/dl (3.4-5.0) L 06/01/17 04:45 Laboratory Results - last 24 hr 05/31/17 05/31/17 06/01/17 09:00 15:00 04:45 WBC 8.6 RBC 4.83 Hgb 14.3 Hct 42.5 MCV 88.1 MCH 29.7 MCHC 33.7 RDW 13.9 Plt Count 189 MPV 8.5 Neutrophils % 43.5 D Lymphocytes % 38.5 D Monocytes % 10.1 Eosinophils % 7.1 H Basophils % 0.8 PT with INR INR PTT (Actin FS) Func Antithrombin III 78 Sodium Potassium Chloride Carbon Dioxide Anion Gap BUN Creatinine Creat Clearance w eGFR Random Glucose Calcium Total Bilirubin AST ALT Alkaline Phosphatase Creatine Kinase 188 Creatine Kinase Index 0.5 CK-MB (CK-2) < 1.000 Troponin I < 0.02 Total Protein Albumin 06/01/17 06/01/17 06/01/17 04:45 04:45 06:50 WBC RBC Hgb Hct MCV MCH MCHC RDW Plt Count MPV Neutrophils % Lymphocytes % Monocytes % Eosinophils % Basophils % PT with INR 11.80 INR 1.04 PTT (Actin FS) 55.1 H Func Antithrombin III Sodium 137 Potassium 4.3 Chloride 102 Carbon Dioxide 31 Anion Gap 4 L BUN 12 Creatinine 1.2 Creat Clearance w eGFR > 60 Random Glucose 117 H Calcium 8.7 Total Bilirubin 0.5 D AST 11 L D ALT 20 Alkaline Phosphatase 63 Creatine Kinase Creatine Kinase Index CK-MB (CK-2) Troponin I Total Protein 6.6 Albumin 3.1 L A/P 32 year old patient with hypertension admitted with bilateral pulmonary embolism Continue with the current management. Will complete workup for hypercoagulable state as an outpatient as needed and would include ADELFO, Lupus anticoagulanand t, protein C and S activity, anti thrombin 111 level,and anti-cardiolipin levels etc.
--- NOTE | 2017-06-02 08:47 | PN ---
Progress Note (short form) - Note Progress Note: bilateral pulmonary embolism/left lower extremity DVT-unprovoked on iv heparin started warfarin yesterday echo normal no chest pain or dyspnea Laboratory Results - last 24 hr 05/31/17 09:00 Func Antithrombin III 78 Vital Signs Period Temp Pulse Resp BP Sys/Motley Pulse Ox Last 24 Hr 98.2 F-98.7 F 82-87 18-20 139-153/73-88 97-98 S1S2 RRR lungs cta abd soft NT left ankle edema appears worse than yesterday, c/o pain denies chest pain or dyspnea IMP bilateral pulmonary embolism/left lower extremity DVT-unprovoked HTN Plan iv heparin warfarin bridging repeat US lle r/o extension of DVT Problem List - Problems (1) DVT (deep venous thrombosis) Code(s): I82.409 - ACUTE EMBOLISM AND THOMBOS UNSP DEEP VN UNSP LOWER EXTREMITY Qualifiers: DVT location: lower extremity Affected thrombotic vein of extremity: popliteal Chronicity: unspecified Laterality: left Qualified Code(s): I82.432 - Acute embolism and thrombosis of left popliteal vein (2) Essential hypertension Code(s): I10 - ESSENTIAL (PRIMARY) HYPERTENSION
[2017-06-02] MEDS: oxyCODONE HCL 5 MG TABLET PO PRN ×2 (09:04→18:47)
[2017-06-02] MEDS: ACETAMINOPHEN 325 MG TABLET (FP) PO PRN ×2 (09:05→18:46)
[2017-06-02] MEDS: LOSARTAN POTASSIUM 50 MG TABLET (FP) PO SCH ×2 (09:05→21:52)
[2017-06-02] MEDS: amLODIPine BESYLATE 10 MG TABLET (FP) PO SCH (09:05)
[2017-06-02 09:22] LABS: INR 1.04 (0.82-1.09); PROTHROMBIN TIME (PATIENT) 11.7 SEC (9.98-11.88)
[2017-06-02] MEDS: HEPARIN NA (PORCINE) 5,000 UNITS/ML 1ML VIAL IVPUSH PRN ×2 (09:53→17:20)
[2017-06-02] MEDS ORDERED: LOSARTAN POTASSIUM 50 MG TABLET (FP) PO SCH (10:00)
--- NOTE | 2017-06-02 14:58 | PN ---
Progress Note, Physician History of Present Illness: pulmonary alert,feeling better,-resp distress,-cp - Current Medication List Current Medications: Active Medications Acetaminophen (Tylenol -) 650 mg PO Q6H PRN PRN Reason: FEVER OR PAIN Last Admin: 06/02/17 09:05 Dose: 650 mg Amlodipine Besylate (Norvasc -) 10 mg PO DAILY [facility] Last Admin: 06/02/17 09:05 Dose: 10 mg Heparin Sodium (Porcine) (Heparin -) 5,000 unit IVPUSH PRN PRN PRN Reason: Heparin Heparin Sodium (Porcine) (Heparin -) 1,000 unit IVPUSH PRN PRN Last Admin: 06/02/17 09:53 Dose: 1,000 unit Heparin Sodium (Porcine) 25, (000 unit/ Sodium Chloride) 500 mls @ 20 mls/hr IV TITR GERMAN; 1,000 UNIT/HR PRN Reason: Protocol Last Titration: 06/02/17 09:53 Dose: 1,300 unit/hr, 26 mls/hr Losartan Potassium (Cozaar -) 50 mg PO BID [facility] Last Admin: 06/02/17 09:05 Dose: 50 mg Oxycodone HCl (Roxicodone -) 10 mg PO Q6H PRN PRN Reason: PAIN Last Admin: 06/02/17 09:04 Dose: 10 mg Warfarin Sodium (Coumadin -) 10 mg PO DAILY@1800 [facility] Last Admin: 06/01/17 18:28 Dose: 10 mg - Objective Vital Signs: Vital Signs Temperature 98.6 F 06/02/17 06:00 Pulse Rate 84 06/02/17 06:00 Respiratory Rate 20 06/02/17 06:00 Blood Pressure 142/88 06/02/17 06:00 O2 Sat by Pulse Oximetry (%) 98 06/01/17 22:00 Constitutional: Yes: Calm, Obese Eyes: Yes: WNL HENT: Yes: WNL Neck: Yes: WNL Cardiovascular: Yes: Regular Rate and Rhythm, S1, S2 Respiratory: Yes: CTA Bilaterally Extremities: Yes: WNL Edema: Yes Labs: CBC, BMP Problem List - Problems (1) Tobacco abuse Code(s): Z72.0 - TOBACCO USE (2) Tobacco abuse counseling Code(s): Z71.6 - TOBACCO ABUSE COUNSELING (3) DVT (deep venous thrombosis) Code(s): I82.409 - ACUTE EMBOLISM AND THOMBOS UNSP DEEP VN UNSP LOWER EXTREMITY Qualifiers: DVT location: lower extremity Affected thrombotic vein of extremity: popliteal Chronicity: unspecified Laterality: left Qualified Code(s): I82.432 - Acute embolism and thrombosis of left popliteal vein (4) Pulmonary embolism Code(s): I26.99 - OTHER PULMONARY EMBOLISM WITHOUT ACUTE COR PULMONALE Assessment/Plan IMP BILATERAL PULMONARY EMBOLI/DVT ? UNPROVOKED HTN LIKELY OSAS SMOKER PLAN AC W/U FOR HYPERCOAGULABLE STATE SLEEP SCREEN SMOKING CESSATION COUNSELED DR RODRIGUEZ Problem List - Problems (1) Tobacco abuse Code(s): Z72.0 - TOBACCO USE (2) Tobacco abuse counseling Code(s): Z71.6 - TOBACCO ABUSE COUNSELING (3) DVT (deep venous thrombosis) Code(s): I82.409 - ACUTE EMBOLISM AND THOMBOS UNSP DEEP VN UNSP LOWER EXTREMITY Qualifiers: DVT location: lower extremity Affected thrombotic vein of extremity: popliteal Chronicity: unspecified Laterality: left Qualified Code(s): I82.432 - Acute embolism and thrombosis of left popliteal vein (4) Pulmonary embolism Code(s): I26.99 - OTHER PULMONARY EMBOLISM WITHOUT ACUTE COR PULMONALE Problem List - Problems (1) Tobacco abuse Code(s): Z72.0 - TOBACCO USE (2) Tobacco abuse counseling Code(s): Z71.6 - TOBACCO ABUSE COUNSELING (3) DVT (deep venous thrombosis) Code(s): I82.409 - ACUTE EMBOLISM AND THOMBOS UNSP DEEP VN UNSP LOWER EXTREMITY Qualifiers: DVT location: lower extremity Affected thrombotic vein of extremity: popliteal Chronicity: unspecified Laterality: left Qualified Code(s): I82.432 - Acute embolism and thrombosis of left popliteal vein (4) Pulmonary embolism Code(s): I26.99 - OTHER PULMONARY EMBOLISM WITHOUT ACUTE COR PULMONALE
--- NOTE | 2017-06-02 15:08 | PN ---
Progress Note, Physician History of Present Illness: Pulmonology Follow up Patient seen and examined at bedside. no new complaints. The pain in his leg comes and goes but has not improved today. Pain is controlled with percocet. - Current Medication List Current Medications: Active Medications Acetaminophen (Tylenol -) 650 mg PO Q6H PRN PRN Reason: FEVER OR PAIN Last Admin: 06/02/17 09:05 Dose: 650 mg Amlodipine Besylate (Norvasc -) 10 mg PO DAILY [facility] Last Admin: 06/02/17 09:05 Dose: 10 mg Heparin Sodium (Porcine) (Heparin -) 5,000 unit IVPUSH PRN PRN PRN Reason: Heparin Heparin Sodium (Porcine) (Heparin -) 1,000 unit IVPUSH PRN PRN Last Admin: 06/02/17 09:53 Dose: 1,000 unit Heparin Sodium (Porcine) 25, (000 unit/ Sodium Chloride) 500 mls @ 20 mls/hr IV TITR GERMAN; 1,000 UNIT/HR PRN Reason: Protocol Last Titration: 06/02/17 09:53 Dose: 1,300 unit/hr, 26 mls/hr Losartan Potassium (Cozaar -) 50 mg PO BID [facility] Last Admin: 06/02/17 09:05 Dose: 50 mg Oxycodone HCl (Roxicodone -) 10 mg PO Q6H PRN PRN Reason: PAIN Last Admin: 06/02/17 09:04 Dose: 10 mg Warfarin Sodium (Coumadin -) 10 mg PO DAILY@1800 [facility] Last Admin: 06/01/17 18:28 Dose: 10 mg - Objective Vital Signs: Vital Signs Temperature 98.6 F 06/02/17 06:00 Pulse Rate 84 06/02/17 06:00 Respiratory Rate 20 06/02/17 06:00 Blood Pressure 142/88 06/02/17 06:00 O2 Sat by Pulse Oximetry (%) 98 06/01/17 22:00 Constitutional: Yes: Well Nourished, No Distress, Calm Cardiovascular: Yes: Regular Rate and Rhythm, S1, S2. No: Bruit, JVD, Gallop, Murmur, Rub, S3, S4 Respiratory: Yes: Regular, CTA Bilaterally Extremities: Yes: Other (warm, edematous left lower extremity) Edema: Yes Edema: LLE: 2+ (non-pitting) Labs: CBC, BMP 11/28/17 04:45 06/01/17 04:45 INR, PTT INR 1.04 (0.82-1.09) 06/02/17 07:30 Assessment/Plan The patient is a 32 yo m w/ PMH HTN who is admitted for the treatment of DVT and b/l PEs. Patient has a family history of hypercoagulable states and denies any risk factors other than smoking. #DVT and PE -Heparin GTT -patient being bridged to warfarin -Echo WNL -LISBETH screen -patient counseled on smoking cessation -Thrombophillia workup underway
[2017-06-02] MEDS: HEPARIN - 25,000 UNIT in SODIUM CHLORIDE 495 ML IV SCH (17:19)
--- NOTE | 2017-06-02 17:25 | PN ---
Progress Note (short form) - Note Progress Note: seen and examined denies any complains, feels OK. Cor: RSR, No murmurs, No gallops Lungs: Clear to P&A Abd: Soft, Normal bowel sounds, No organomegaly Ext:L>R Skin: No rashes, Integument intact Last Vital Signs Temp Pulse Resp BP Pulse Ox 98.6 F 84 20 142/88 98 06/02/17 06:00 06/02/17 06:00 06/02/17 06:00 06/02/17 06:00 06/01/17 22:00 CBC, BMP 06/01/17 04:45 06/01/17 04:45 Current Medications Generic Name Dose Route Start Last Admin Trade Name Freq PRN Reason Stop Dose Admin Acetaminophen 650 mg 06/02/17 08:44 06/02/17 09:05 Tylenol - PO 650 mg Q6H PRN Administration FEVER OR PAIN Amlodipine Besylate 10 mg 06/02/17 10:00 06/02/17 09:05 Norvasc - PO 10 mg DAILY [facility] Administration Heparin Sodium (Porcine) 5,000 unit 06/01/17 18:29 Heparin - IVPUSH PRN PRN Heparin Heparin Sodium (Porcine) 1,000 unit 06/01/17 18:29 06/02/17 17:20 Heparin - IVPUSH 1,000 unit PRN PRN Administration Heparin Sodium (Porcine) 25, 500 mls @ 20 mls/hr 06/01/17 18:29 06/02/17 17: 19 000 unit/ Sodium Chloride IV 1,400 unit/hr TITR GERMAN 28 mls/hr Protocol Administration 1,000 UNIT/HR Losartan Potassium 50 mg 06/01/17 22:00 06/02/17 09:05 Cozaar - PO 50 mg BID [facility] Administration Oxycodone HCl 10 mg 06/02/17 08:44 06/02/17 09:04 Roxicodone - PO 10 mg Q6H PRN Administration PAIN Warfarin Sodium 10 mg 06/01/17 10:45 06/01/17 18:28 Coumadin - PO 10 mg DAILY@1800 [facility] Administration The patient is a 32 yo m w/ PMH HTN who is admitted for the treatment of DVT and b/l PEs. Patient has a family history of hypercoagulable states and denies any risk factors other than smoking. Unprovoked DVT/PE on bridging, heparin to coumadin thrombophilia w/u as outpatient smoking cessation counselling
[2017-06-02] MEDS ORDERED: PT OWN MED DRAWER 7, Y5N ONE (18:38)
[2017-06-02] MEDS: WARFARIN NA 10 MG TABLET (FP) PO SCH (18:39)
[2017-06-03] MEDS: HEPARIN NA (PORCINE) 5,000 UNITS/ML 1ML VIAL IVPUSH PRN (01:24)
[2017-06-03 08:10] LABS: INR 1.13 (0.82-1.09); PROTHROMBIN TIME (PATIENT) 12.8 SEC (9.98-11.88)
[2017-06-03] MEDS: oxyCODONE HCL 5 MG TABLET PO PRN (08:38)
[2017-06-03] MEDS: ACETAMINOPHEN 325 MG TABLET (FP) PO PRN (08:39)
[2017-06-03] MEDS ORDERED: PT OWN MED DRAWER 7, Y5N ONE (08:52)
[2017-06-03] MEDS: LOSARTAN POTASSIUM 50 MG TABLET (FP) PO SCH ×2 (09:24→22:00)
[2017-06-03] MEDS: amLODIPine BESYLATE 10 MG TABLET (FP) PO SCH (09:24)
--- NOTE | 2017-06-03 10:37 | PN ---
Progress Note (short form) - Note Progress Note: bilateral pulmonary embolism/left lower extremity DVT-unprovoked Abnormal Lab Results 06/02/17 06/02/17 06/03/17 15:00 23:30 06:20 PT with INR 12.80 H PTT (Actin FS) 41.8 H 48.2 H 06/03/17 06:20 PT with INR PTT (Actin FS) 56.3 H CBC, BMP 06/01/17 04:45 06/01/17 04:45 S1S2 RRR lungs cta abd soft NT left ankle edema persists, ambulating denies chest pain or dyspnea IMP bilateral pulmonary embolism/left lower extremity DVT-unprovoked HTN Plan iv heparin warfarin bridging repeat US lle stable teds Problem List - Problems (1) DVT (deep venous thrombosis) Code(s): I82.409 - ACUTE EMBOLISM AND THOMBOS UNSP DEEP VN UNSP LOWER EXTREMITY Qualifiers: DVT location: lower extremity Affected thrombotic vein of extremity: popliteal Chronicity: unspecified Laterality: left Qualified Code(s): I82.432 - Acute embolism and thrombosis of left popliteal vein (2) Essential hypertension Code(s): I10 - ESSENTIAL (PRIMARY) HYPERTENSION
[2017-06-03] MEDS: HEPARIN - 25,000 UNIT in SODIUM CHLORIDE 495 ML IV SCH (11:48)
--- NOTE | 2017-06-03 12:48 | PN ---
Progress Note (short form) - Note Progress Note: PULMONARY Denies shortness of breath or chest pain. Left leg swelling improving. Last Vital Signs Temp Pulse Resp BP Pulse Ox 98.7 F 90 20 145/89 98 06/03/17 10:00 06/03/17 10:00 06/03/17 10:00 06/03/17 10:00 06/02/17 21:00 Gen: NAD at rest Heart: RRR Lung: decreased breath sounds at the bases Abd: soft, nontender Ext: 1+ LLE edema CBC, BMP 06/01/17 04:45 06/01/17 04:45 INR, PTT INR 1.13 (0.82-1.09) 06/03/17 06:20 Active Medications Acetaminophen (Tylenol -) 650 mg PO Q6H PRN PRN Reason: FEVER OR PAIN Last Admin: 06/03/17 08:39 Dose: 650 mg Amlodipine Besylate (Norvasc -) 10 mg PO DAILY [facility] Last Admin: 06/03/17 09:24 Dose: 10 mg Heparin Sodium (Porcine) (Heparin -) 5,000 unit IVPUSH PRN PRN PRN Reason: Heparin Heparin Sodium (Porcine) (Heparin -) 1,000 unit IVPUSH PRN PRN Last Admin: 06/03/17 01:24 Dose: 1,000 unit Heparin Sodium (Porcine) 25, (000 unit/ Sodium Chloride) 500 mls @ 20 mls/hr IV TITR GERMAN; 1,000 UNIT/HR PRN Reason: Protocol Last Admin: 06/03/17 11:48 Dose: 1,500 unit/hr, 30 mls/hr Losartan Potassium (Cozaar -) 50 mg PO BID [facility] Last Admin: 06/03/17 09:24 Dose: 50 mg Oxycodone HCl (Roxicodone -) 10 mg PO Q6H PRN PRN Reason: PAIN Last Admin: 06/03/17 08:38 Dose: 10 mg Warfarin Sodium (Coumadin -) 10 mg PO DAILY@1800 [facility] Last Admin: 06/02/17 18:39 Dose: 10 mg A/P Unprovoked Pulmonary Emboli DVT HTN LISBETH Smoker - continue transitioning of anticoagulation to oral agent with target INR 2-3 - hypercoagulable work up as outpt - smoking cessation
[2017-06-03] MEDS: WARFARIN NA 10 MG TABLET (FP) PO SCH (18:17)
[2017-06-04] MEDS: HEPARIN - 25,000 UNIT in SODIUM CHLORIDE 495 ML IV SCH (06:10)
[2017-06-04 08:06] LABS: BASOPHIL 0.6 % (0-2.0); EOSINOPHIL 7.8 % (0-4.5); MCH 28.9 pg (25.7-33.7); MCHC 32.7 g/dl (32.0-35.9); MEAN CELL VOLUME 88.4 fl (80-96); MEAN PLT VOLUME 8.6 fl (7.5-11.1); NEUTROPHILS 44.4 % (42.8-82.8); PLATELET COUNT 223 K/MM3 (134-434); RDW 13.8 % (11.9-15.9); WHITE BLOOD COUNT 6.2 K/mm3 (4.0-10.0)
[2017-06-04 08:27] LABS: INR 1.38 (0.82-1.09); PROTHROMBIN TIME (PATIENT) 15.6 SEC (9.98-11.88)
--- NOTE | 2017-06-04 08:45 | PN ---
Progress Note (short form) - Note Progress Note: bilateral pulmonary embolism/left lower extremity DVT-unprovoked Vital Signs Period Temp Pulse Resp BP Sys/Motley Pulse Ox Last 24 Hr 97.7 F-98.7 F 80-91 18-22 119-157/79-93 97 INR 1.38 S1S2 RRR lungs cta abd soft NT left ankle edema persists, ambulating denies chest pain or dyspnea IMP bilateral pulmonary embolism/left lower extremity DVT-unprovoked HTN Plan iv heparin warfarin bridging, increase dose today teds Problem List - Problems (1) DVT (deep venous thrombosis) Code(s): I82.409 - ACUTE EMBOLISM AND THOMBOS UNSP DEEP VN UNSP LOWER EXTREMITY Qualifiers: DVT location: lower extremity Affected thrombotic vein of extremity: popliteal Chronicity: unspecified Laterality: left Qualified Code(s): I82.432 - Acute embolism and thrombosis of left popliteal vein (2) Essential hypertension Code(s): I10 - ESSENTIAL (PRIMARY) HYPERTENSION
[2017-06-04 08:52] LABS: ALBUMIN 3.5 g/dl (3.4-5.0); ALK PHOS 64 U/L (45-117); ANION GAP 5 (8-16); BILIRUBIN,TOTAL 0.5 mg/dL (0.2-1.0); CALCIUM 8.7 mg/dL (8.5-10.1); CO2 28 mmol/L (21-32); CREATININE 1.1 mg/dL (0.7-1.3); GLUCOSE,RANDOM 103 mg/dL (74-106); SGOT/AST 41 U/L (15-37); SGPT/ALT 53 U/L (12-78); TOT PROT 7.4 g/dl (6.4-8.2)
[2017-06-04] MEDS: LOSARTAN POTASSIUM 50 MG TABLET (FP) PO SCH ×2 (09:00→21:30)
[2017-06-04] MEDS: amLODIPine BESYLATE 10 MG TABLET (FP) PO SCH (09:00)
[2017-06-04] MEDS ORDERED: WARFARIN NA 10 MG TABLET (FP) PO SCH (09:04)
--- NOTE | 2017-06-04 13:20 | PN ---
Progress Note, Physician History of Present Illness: Pulmonology Follow up Patient seen and examined at bedside. no new complaints. Patient's leg swelling and pain are improved today. Currently bridging the patient to Coumadin - Current Medication List Current Medications: Active Medications Acetaminophen (Tylenol -) 650 mg PO Q6H PRN PRN Reason: FEVER OR PAIN Last Admin: 06/03/17 08:39 Dose: 650 mg Amlodipine Besylate (Norvasc -) 10 mg PO DAILY [facility] Last Admin: 06/04/17 09:00 Dose: 10 mg Heparin Sodium (Porcine) (Heparin -) 5,000 unit IVPUSH PRN PRN PRN Reason: Heparin Heparin Sodium (Porcine) (Heparin -) 1,000 unit IVPUSH PRN PRN Last Admin: 06/03/17 01:24 Dose: 1,000 unit Heparin Sodium (Porcine) 25, (000 unit/ Sodium Chloride) 500 mls @ 20 mls/hr IV TITR GERMAN; 1,000 UNIT/HR PRN Reason: Protocol Last Admin: 06/04/17 06:10 Dose: 1,500 unit/hr, 30 mls/hr Losartan Potassium (Cozaar -) 50 mg PO BID [facility] Last Admin: 06/04/17 09:00 Dose: 50 mg Oxycodone HCl (Roxicodone -) 10 mg PO Q6H PRN PRN Reason: PAIN Last Admin: 06/03/17 08:38 Dose: 10 mg Warfarin Sodium 10 mg/ (Warfarin Sodium 2 mg) 12 mg PO DAILY@1800 [facility] - Objective Vital Signs: Vital Signs Temperature 97.9 F 06/04/17 09:01 Pulse Rate 91 H 06/04/17 09:01 Respiratory Rate 18 06/04/17 09:01 Blood Pressure 157/79 06/04/17 09:01 O2 Sat by Pulse Oximetry (%) 97 06/04/17 09:00 Constitutional: Yes: Well Nourished, No Distress, Calm HENT: Yes: Atraumatic, Normocephalic Cardiovascular: Yes: Regular Rate and Rhythm, S1, S2. No: Bruit, JVD, Gallop, Murmur, Rub, S3, S4 Respiratory: Yes: Regular, CTA Bilaterally Edema: Yes Edema: LLE: 2+, RLE: Trace Neurological: Yes: Alert, Oriented Psychiatric: Yes: Alert, Oriented Labs: CBC, BMP 06/04/17 07:49 06/04/17 07:49 INR, PTT INR 1.38 (0.82-1.09) H 06/04/17 07:49 Assessment/Plan The patient is a 32 yo m w/ PMH HTN who is admitted for the treatment of DVT and b/l PEs. Patient has a family history of hypercoagulable states and denies any risk factors other than smoking. #DVT and PE -Heparin GTT -patient being bridged to warfarin; INR 1.3 -Echo WNL -LISBETH screen -patient counseled on smoking cessation -Thrombophillia workup underway
[2017-06-04] MEDS: oxyCODONE HCL 5 MG TABLET PO PRN (14:00)
[2017-06-04] MEDS: ACETAMINOPHEN 325 MG TABLET (FP) PO PRN (14:01)
--- NOTE | 2017-06-04 14:19 | PN ---
Teaching Attending Note Name of Resident: Mook Alba ATTENDING PHYSICIAN STATEMENT I saw and evaluated the patient. I reviewed the resident's note and discussed the case with the resident. I agree with the resident's findings and plan as documented. PULMONARY ALERT,OOB-CHAIR,-SOB,-CP,+LLE PAIN.SLEEP SCREEN + SEVERE OBSTRUCTIVE SLEEP APNEA ,AHI 55.1 IMP BILATERAL PULMONARY EMBOLI/DVT ? UNPROVOKED HTN OSAS SMOKER PLAN HEPARIN-COUMADIN W/U FOR HYPERCOAGULABLE STATE OUTPATIENT FORMAL SLEEP STUDIES OUTPATIENT SMOKING CESSATION COUNSELED DR RODRIGUEZ Problem List - Problems (1) Tobacco abuse Code(s): Z72.0 - TOBACCO USE (2) Tobacco abuse counseling Code(s): Z71.6 - TOBACCO ABUSE COUNSELING (3) DVT (deep venous thrombosis) Code(s): I82.409 - ACUTE EMBOLISM AND THOMBOS UNSP DEEP VN UNSP LOWER EXTREMITY Qualifiers: DVT location: lower extremity Affected thrombotic vein of extremity: popliteal Chronicity: unspecified Laterality: left Qualified Code(s): I82.432 - Acute embolism and thrombosis of left popliteal vein (4) Pulmonary embolism Code(s): I26.99 - OTHER PULMONARY EMBOLISM WITHOUT ACUTE COR PULMONALE Problem List - Problems (1) Tobacco abuse Code(s): Z72.0 - TOBACCO USE (2) Tobacco abuse counseling Code(s): Z71.6 - TOBACCO ABUSE COUNSELING (3) DVT (deep venous thrombosis) Code(s): I82.409 - ACUTE EMBOLISM AND THOMBOS UNSP DEEP VN UNSP LOWER EXTREMITY Qualifiers: DVT location: lower extremity Affected thrombotic vein of extremity: popliteal Chronicity: unspecified Laterality: left Qualified Code(s): I82.432 - Acute embolism and thrombosis of left popliteal vein (4) Pulmonary embolism Code(s): I26.99 - OTHER PULMONARY EMBOLISM WITHOUT ACUTE COR PULMONALE Problem List - Problems (1) Tobacco abuse Code(s): Z72.0 - TOBACCO USE (2) Tobacco abuse counseling Code(s): Z71.6 - TOBACCO ABUSE COUNSELING (3) DVT (deep venous thrombosis) Code(s): I82.409 - ACUTE EMBOLISM AND THOMBOS UNSP DEEP VN UNSP LOWER EXTREMITY Qualifiers: DVT location: lower extremity Affected thrombotic vein of extremity: popliteal Chronicity: unspecified Laterality: left Qualified Code(s): I82.432 - Acute embolism and thrombosis of left popliteal vein (4) Pulmonary embolism Code(s): I26.99 - OTHER PULMONARY EMBOLISM WITHOUT ACUTE COR PULMONALE
[2017-06-04] MEDS ORDERED: PT OWN MED DRAWER 7, Y5N ONE (17:50)
[2017-06-04] MEDS: WARFARIN NA 10 MG, WARFARIN NA 2 MG PO SCH (17:55)
--- NOTE | 2017-06-04 18:22 | PN ---
Progress Note (short form) - Note Progress Note: Patient seen and examined Bridging heparin to coumadin Denies chest pains or SOB Last Vital Signs Temp Pulse Resp BP Pulse Ox 98.7 F 97 H 18 142/75 97 06/04/17 14:24 06/04/17 14:24 06/04/17 14:24 06/04/17 14:24 06/04/17 09:00 No icterus Clear lungs RSR Soft abd Ext - no pains CBC, BMP 06/04/17 07:49 06/04/17 07:49 INR, PTT INR 1.38 (0.82-1.09) H 06/04/17 07:49 Impression DVT Bilateral PE Bridge heparin to coumadin Thrombophilia w/u in future as outpatient.
[2017-06-05] MEDS: oxyCODONE HCL 5 MG TABLET PO PRN ×2 (07:12→17:29)
[2017-06-05] MEDS: ACETAMINOPHEN 325 MG TABLET (FP) PO PRN ×2 (07:12→17:28)
--- NOTE | 2017-06-05 08:25 | PN ---
Progress Note (short form) - Note Progress Note: bilateral pulmonary embolism/left lower extremity DVT-unprovoked INR pending CBC, BMP 06/04/17 07:49 06/04/17 07:49 Vital Signs Period Temp Pulse Resp BP Sys/Motley Pulse Ox Last 24 Hr 97.8 F-98.7 F 65-97 16-19 130-157/75-88 97-97 S1S2 RRR lungs cta abd soft NT left ankle edema persists, ambulating denies chest pain or dyspnea IMP bilateral pulmonary embolism/left lower extremity DVT-unprovoked HTN Plan iv heparin warfarin bridging teds Problem List - Problems (1) DVT (deep venous thrombosis) Code(s): I82.409 - ACUTE EMBOLISM AND THOMBOS UNSP DEEP VN UNSP LOWER EXTREMITY Qualifiers: DVT location: lower extremity Affected thrombotic vein of extremity: popliteal Chronicity: unspecified Laterality: left Qualified Code(s): I82.432 - Acute embolism and thrombosis of left popliteal vein (2) Essential hypertension Code(s): I10 - ESSENTIAL (PRIMARY) HYPERTENSION
[2017-06-05 09:43] LABS: INR 1.81 (0.82-1.09); PROTHROMBIN TIME (PATIENT) 20.5 SEC (9.98-11.88)
[2017-06-05] MEDS: LOSARTAN POTASSIUM 50 MG TABLET (FP) PO SCH ×2 (10:21→21:11)
[2017-06-05] MEDS: amLODIPine BESYLATE 10 MG TABLET (FP) PO SCH (10:21)
[2017-06-05] MEDS: HEPARIN INFUSION - 25,000 UNITS/500 ML INFUS.BAG IVPB SCH (10:59)
--- NOTE | 2017-06-05 13:46 | PN ---
Progress Note, Physician History of Present Illness: pulmonary alert,nad,-sob,cough,-cp - Current Medication List Current Medications: Active Medications Acetaminophen (Tylenol -) 650 mg PO Q6H PRN PRN Reason: FEVER OR PAIN Last Admin: 06/05/17 07:12 Dose: 650 mg Amlodipine Besylate (Norvasc -) 10 mg PO DAILY [facility] Last Admin: 06/05/17 10:21 Dose: 10 mg Heparin Sodium (Porcine) (Heparin -) 5,000 unit IVPUSH PRN PRN PRN Reason: Heparin Heparin Sodium (Porcine) (Heparin -) 1,000 unit IVPUSH PRN PRN Last Admin: 06/03/17 01:24 Dose: 1,000 unit Heparin Sodium/Dextrose (Heparin Infusion -) 25,000 units in 500 mls @ 20 mls/ hr IVPB TITR [facility]ERMAN; 1,000 UNIT/HR PRN Reason: Protocol Last Admin: 06/05/17 10:59 Dose: 1,450 unit/hr, 29 mls/hr Losartan Potassium (Cozaar -) 50 mg PO BID [facility] Last Admin: 06/05/17 10:21 Dose: 50 mg Oxycodone HCl (Roxicodone -) 10 mg PO Q6H PRN PRN Reason: PAIN Last Admin: 06/05/17 07:12 Dose: 10 mg Warfarin Sodium 10 mg/ (Warfarin Sodium 2 mg) 12 mg PO DAILY@1800 [facility] Last Admin: 06/04/17 17:55 Dose: 12 mg - Objective Vital Signs: Vital Signs Temperature 97.8 F 06/05/17 05:00 Pulse Rate 74 06/05/17 05:00 Respiratory Rate 16 06/05/17 05:00 Blood Pressure 130/88 06/05/17 05:00 O2 Sat by Pulse Oximetry (%) 97 06/04/17 21:00 Constitutional: Yes: Well Nourished, Calm Eyes: Yes: WNL HENT: Yes: WNL Neck: Yes: WNL Cardiovascular: Yes: Regular Rate and Rhythm, S1, S2 Respiratory: Yes: CTA Bilaterally Gastrointestinal: Yes: Normal Bowel Sounds, Soft Extremities: Yes: WNL Edema: No Labs: CBC, BMP Problem List - Problems (1) Tobacco abuse Code(s): Z72.0 - TOBACCO USE (2) Tobacco abuse counseling Code(s): Z71.6 - TOBACCO ABUSE COUNSELING (3) DVT (deep venous thrombosis) Code(s): I82.409 - ACUTE EMBOLISM AND THOMBOS UNSP DEEP VN UNSP LOWER EXTREMITY Qualifiers: DVT location: lower extremity Affected thrombotic vein of extremity: popliteal Chronicity: unspecified Laterality: left Qualified Code(s): I82.432 - Acute embolism and thrombosis of left popliteal vein (4) Pulmonary embolism Code(s): I26.99 - OTHER PULMONARY EMBOLISM WITHOUT ACUTE COR PULMONALE Assessment/Plan IMP BILATERAL PULMONARY EMBOLI/DVT ? UNPROVOKED HTN [employer]AS [employer] PLAN AC W/U FOR HYPERCOAGULABLE STATE SMOKING CESSATION COUNSELED FORMAL SLEEP STUDIES OUTPATIENT DR RODRIGUEZ Problem List - Problems (1) Tobacco abuse Code(s): Z72.0 - TOBACCO USE (2) Tobacco abuse counseling Code(s): Z71.6 - TOBACCO ABUSE COUNSELING (3) DVT (deep venous thrombosis) Code(s): I82.409 - ACUTE EMBOLISM AND THOMBOS UNSP DEEP VN UNSP LOWER EXTREMITY Qualifiers: DVT location: lower extremity Affected thrombotic vein of extremity: popliteal Chronicity: unspecified Laterality: left Qualified Code(s): I82.432 - Acute embolism and thrombosis of left popliteal vein (4) Pulmonary embolism Code(s): I26.99 - OTHER PULMONARY EMBOLISM WITHOUT ACUTE COR PULMONALE Problem List - Problems (1) Tobacco abuse Code(s): Z72.0 - TOBACCO USE (2) Tobacco abuse counseling Code(s): Z71.6 - TOBACCO ABUSE COUNSELING (3) DVT (deep venous thrombosis) Code(s): I82.409 - ACUTE EMBOLISM AND THOMBOS UNSP DEEP VN UNSP LOWER EXTREMITY Qualifiers: DVT location: lower extremity Affected thrombotic vein of extremity: popliteal Chronicity: unspecified Laterality: left Qualified Code(s): I82.432 - Acute embolism and thrombosis of left popliteal vein (4) Pulmonary embolism Code(s): I26.99 - OTHER PULMONARY EMBOLISM WITHOUT ACUTE COR PULMONALE
[2017-06-05] MEDS ORDERED: PT OWN MED DRAWER 7, Y5N ONE (16:45)
[2017-06-05] MEDS: WARFARIN NA 10 MG, WARFARIN NA 2 MG PO SCH (17:30)
[2017-06-06] MEDS: HEPARIN INFUSION - 25,000 UNITS/500 ML INFUS.BAG IVPB SCH ×2 (04:19→11:00)
--- NOTE | 2017-06-06 07:19 | PN ---
Progress Note (short form) - Note Progress Note: bilateral pulmonary embolism/left lower extremity DVT-unprovoked INR 1.8 yesterday Vital Signs Period Temp Pulse Resp BP Sys/Motley Pulse Ox Last 24 Hr 97.4 F-98.4 F 70-90 16-20 139-154/75-90 98-98 S1S2 RRR lungs cta abd soft NT left ankle edema persists denies chest pain or dyspnea IMP bilateral pulmonary embolism/left lower extremity DVT-unprovoked HTN Plan iv heparin warfarin bridging teds Problem List - Problems (1) DVT (deep venous thrombosis) Code(s): I82.409 - ACUTE EMBOLISM AND THOMBOS UNSP DEEP VN UNSP LOWER EXTREMITY Qualifiers: DVT location: lower extremity Affected thrombotic vein of extremity: popliteal Chronicity: unspecified Laterality: left Qualified Code(s): I82.432 - Acute embolism and thrombosis of left popliteal vein (2) Essential hypertension Code(s): I10 - ESSENTIAL (PRIMARY) HYPERTENSION
[2017-06-06 08:58] LABS: INR 2.86 (0.82-1.09); PROTHROMBIN TIME (PATIENT) 32.3 SEC (9.98-11.88)
[2017-06-06] MEDS: amLODIPine BESYLATE 10 MG TABLET (FP) PO SCH (09:57)
[2017-06-06] MEDS: LOSARTAN POTASSIUM 50 MG TABLET (FP) PO SCH ×2 (09:57→22:14)
--- NOTE | 2017-06-06 15:36 | PN ---
Progress Note, Physician History of Present Illness: pulmonary alert,nad,-sob - Current Medication List Current Medications: Active Medications Acetaminophen (Tylenol -) 650 mg PO Q6H PRN PRN Reason: FEVER OR PAIN Last Admin: 06/05/17 17:28 Dose: 650 mg Amlodipine Besylate (Norvasc -) 10 mg PO DAILY [facility] Last Admin: 06/06/17 09:57 Dose: 10 mg Heparin Sodium (Porcine) (Heparin -) 5,000 unit IVPUSH PRN PRN PRN Reason: Heparin Heparin Sodium (Porcine) (Heparin -) 1,000 unit IVPUSH PRN PRN Last Admin: 06/03/17 01:24 Dose: 1,000 unit Heparin Sodium/Dextrose (Heparin Infusion -) 25,000 units in 500 mls @ 20 mls/ hr IVPB TITR GERMAN; 1,000 UNIT/HR PRN Reason: Protocol Last Titration: 06/06/17 09:57 Dose: 1,350 unit/hr, 27 mls/hr Losartan Potassium (Cozaar -) 50 mg PO BID [facility] Last Admin: 06/06/17 09:57 Dose: 50 mg Oxycodone HCl (Roxicodone -) 10 mg PO Q6H PRN PRN Reason: PAIN Last Admin: 06/05/17 17:29 Dose: 10 mg Warfarin Sodium (Coumadin -) 5 mg PO ONCE@1800 ONE Stop: 06/06/17 18:01 - Objective Vital Signs: Vital Signs Temperature 97.9 F 06/06/17 14:00 Pulse Rate 84 06/06/17 14:00 Respiratory Rate 20 06/06/17 14:00 Blood Pressure 145/82 06/06/17 14:00 O2 Sat by Pulse Oximetry (%) 99 06/06/17 08:48 Constitutional: Yes: Well Nourished, Calm, Obese Eyes: Yes: WNL HENT: Yes: WNL Neck: Yes: Tenderness Cardiovascular: Yes: Regular Rate and Rhythm, S1, S2 Respiratory: Yes: CTA Bilaterally Gastrointestinal: Yes: Normal Bowel Sounds, Soft Extremities: Yes: WNL Edema: No Labs: CBC, BMP INR, PTT INR 2.86 (0.82-1.09) H D 06/06/17 07:00 Problem List - Problems (1) Tobacco abuse Code(s): Z72.0 - TOBACCO USE (2) Tobacco abuse counseling Code(s): Z71.6 - TOBACCO ABUSE COUNSELING (3) DVT (deep venous thrombosis) Code(s): I82.409 - ACUTE EMBOLISM AND THOMBOS UNSP DEEP VN UNSP LOWER EXTREMITY Qualifiers: DVT location: lower extremity Affected thrombotic vein of extremity: popliteal Chronicity: unspecified Laterality: left Qualified Code(s): I82.432 - Acute embolism and thrombosis of left popliteal vein (4) Pulmonary embolism Code(s): I26.99 - OTHER PULMONARY EMBOLISM WITHOUT ACUTE COR PULMONALE Assessment/Plan IMP BILATERAL PULMONARY EMBOLI/DVT ? UNPROVOKED HTN [employer] PL[employer] AC PER INR W/U FOR HYPERCOAGULABLE STATE SMOKING CESSATION COUNSELED FORMAL SLEEP STUDIES OUTPATIENT DR RODRIGUEZ Problem List - Problems (1) Tobacco abuse Code(s): Z72.0 - TOBACCO USE (2) Tobacco abuse counseling Code(s): Z71.6 - TOBACCO ABUSE COUNSELING (3) DVT (deep venous thrombosis) Code(s): I82.409 - ACUTE EMBOLISM AND THOMBOS UNSP DEEP VN UNSP LOWER EXTREMITY Qualifiers: DVT location: lower extremity Affected thrombotic vein of extremity: popliteal Chronicity: unspecified Laterality: left Qualified Code(s): I82.432 - Acute embolism and thrombosis of left popliteal vein (4) Pulmonary embolism Code(s): I26.99 - OTHER PULMONARY EMBOLISM WITHOUT ACUTE COR PULMONALE Problem List - Problems (1) Tobacco abuse Code(s): Z72.0 - TOBACCO USE (2) Tobacco abuse counseling Code(s): Z71.6 - TOBACCO ABUSE COUNSELING (3) DVT (deep venous thrombosis) Code(s): I82.409 - ACUTE EMBOLISM AND THOMBOS UNSP DEEP VN UNSP LOWER EXTREMITY Qualifiers: DVT location: lower extremity Affected thrombotic vein of extremity: popliteal Chronicity: unspecified Laterality: left Qualified Code(s): I82.432 - Acute embolism and thrombosis of left popliteal vein (4) Pulmonary embolism Code(s): I26.99 - OTHER PULMONARY EMBOLISM WITHOUT ACUTE COR PULMONALE
[2017-06-06] MEDS ORDERED: WARFARIN NA 5 MG TABLET (UD) PO ONE (18:00)
[2017-06-07] MEDS: HEPARIN INFUSION - 25,000 UNITS/500 ML INFUS.BAG IVPB SCH (03:09)
[2017-06-07 07:51] LABS: BASOPHIL 0.9 % (0-2.0); EOSINOPHIL 8.4 % (0-4.5); MCH 29.2 pg (25.7-33.7); MCHC 33.3 g/dl (32.0-35.9); MEAN CELL VOLUME 87.6 fl (80-96); MEAN PLT VOLUME 8.8 fl (7.5-11.1); NEUTROPHILS 35.9 % (42.8-82.8); PLATELET COUNT 261 K/MM3 (134-434); RDW 13.9 % (11.9-15.9); WHITE BLOOD COUNT 6.2 K/mm3 (4.0-10.0)
[2017-06-07 08:21] LABS: ALBUMIN 3.5 g/dl (3.4-5.0); ANION GAP 7 (8-16); BILIRUBIN,TOTAL 0.5 mg/dL (0.2-1.0); CALCIUM 8.6 mg/dL (8.5-10.1); CO2 29 mmol/L (21-32); CREATININE 1.1 mg/dL (0.7-1.3); GLUCOSE,RANDOM 100 mg/dL (74-106); SGOT/AST 47 U/L (15-37); SGPT/ALT 89 U/L (12-78); TOT PROT 7.2 g/dl (6.4-8.2)
[2017-06-07 08:22] LABS: ALK PHOS 63 U/L (45-117)
[2017-06-07 08:28] LABS: INR 2.69 (0.82-1.09); PROTHROMBIN TIME (PATIENT) 30.4 SEC (9.98-11.88)
[2017-06-07] MEDS: amLODIPine BESYLATE 10 MG TABLET (FP) PO SCH (09:31)
[2017-06-07] MEDS: oxyCODONE HCL 5 MG TABLET PO PRN (09:31)
[2017-06-07] MEDS: LOSARTAN POTASSIUM 50 MG TABLET (FP) PO SCH (09:31)
[2017-06-07] MEDS: ACETAMINOPHEN 325 MG TABLET (FP) PO PRN (09:32)
[2017-06-07 10:48] VITALS: BP 141/75; PULSE 97; TEMP 98.7
--- NOTE | 2017-06-07 12:35 | PN ---
Progress Note (short form) - Note Progress Note: Overall feels better. No CP or SOB. INR therapeutic. Intake & Output 06/04/17 06/05/17 06/06/17 06/07/17 23:59 23:59 23:59 23:59 Intake Total 18596 324 Balance 1859 1849 1825 324 Weight 267 lb 14.4 oz 270 lb 271 lb 11.2 oz 270 lb Last Vital Signs Temp Pulse Resp BP Pulse Ox 98.7 F 97 H 20 141/75 100 06/07/17 10:00 06/07/17 10:00 06/07/17 10:00 06/07/17 10:00 06/06/17 20:26 Active Medications Acetaminophen (Tylenol -) 650 mg PO Q6H PRN PRN Reason: FEVER OR PAIN Last Admin: 06/07/17 09:32 Dose: 650 mg Amlodipine Besylate (Norvasc -) 10 mg PO DAILY [facility] Last Admin: 06/07/17 09:31 Dose: 10 mg Heparin Sodium (Porcine) (Heparin -) 5,000 unit IVPUSH PRN PRN PRN Reason: Heparin Heparin Sodium (Porcine) (Heparin -) 1,000 unit IVPUSH PRN PRN Last Admin: 06/03/17 01:24 Dose: 1,000 unit Heparin Sodium/Dextrose (Heparin Infusion -) 25,000 units in 500 mls @ 20 mls/ hr IVPB TITR [facility]ER[facility]; 1,000 UNIT/HR PRN Reason: Protocol Last Titration: 06/07/17 11:36 Dose: 1,250 unit/hr, 25 mls/hr Losartan Potassium (Cozaar -) 50 mg PO BID [facility] Last Admin: 06/07/17 09:31 Dose: 50 mg Oxycodone HCl (Roxicodone -) 10 mg PO Q6H PRN PRN Reason: PAIN Last Admin: 06/07/17 09:31 Dose: 10 mg Constitutional: Yes: NAD Eyes: Yes: WNL HENT: Yes: WNL Neck: Yes: Tenderness Cardiovascular: Yes: Regular Rate and Rhythm, S1, S2 Respiratory: Yes: CTA Bilaterally Gastrointestinal: Yes: Normal Bowel Sounds, Soft Extremities: Yes: WNL Edema: No Labs: Laboratory Results - last 24 hr 06/06/17 06/07/17 06/07/17 15:22 06:50 06:50 WBC RBC Hgb Hct MCV MCH MCHC RDW Plt Count MPV Neutrophils % Lymphocytes % Monocytes % Eosinophils % Basophils % PT with INR 30.40 H INR 2.69 H PTT (Actin FS) 62.7 H 99.6 H D Sodium Potassium Chloride Carbon Dioxide Anion Gap BUN Creatinine Creat Clearance w eGFR Random Glucose Calcium Total Bilirubin AST ALT Alkaline Phosphatase Total Protein Albumin 06/07/17 06/07/17 06:50 06:50 WBC 6.2 RBC 5.23 Hgb 15.3 Hct 45.9 MCV 87.6 MCH 29.2 MCHC 33.3 RDW 13.9 Plt Count 261 MPV 8.8 Neutrophils % 35.9 L Lymphocytes % 39.2 Monocytes % 15.6 H Eosinophils % 8.4 H Basophils % 0.9 PT with INR INR PTT (Actin FS) Sodium 139 Potassium 4.0 Chloride 103 Carbon Dioxide 29 Anion Gap 7 L BUN 10 Creatinine 1.1 Creat Clearance w eGFR > 60 Random Glucose 100 Calcium 8.6 Total Bilirubin 0.5 AST 47 H ALT 89 H D Alkaline Phosphatase 63 Total Protein 7.2 Albumin 3.5 Problem List - Problems (1) Tobacco abuse Code(s): Z72.0 - TOBACCO USE (2) Tobacco abuse counseling Code(s): Z71.6 - TOBACCO ABUSE COUNSELING (3) DVT (deep venous thrombosis) Code(s): I82.409 - ACUTE EMBOLISM AND THOMBOS UNSP DEEP VN UNSP LOWER EXTREMITY Qualifiers: DVT location: lower extremity Affected thrombotic vein of extremity: popliteal Chronicity: unspecified Laterality: left Qualified Code(s): I82.432 - Acute embolism and thrombosis of left popliteal vein (4) Pulmonary embolism Code(s): I26.99 - OTHER PULMONARY EMBOLISM WITHOUT ACUTE COR PULMONALE Assessment/Plan IMP BILATERAL PULMONARY EMBOLI/DVT ? UNPROVOKED HTN [employer] PL[employer] COUMADIN W/U FOR HYPERCOAGULABLE STATE SMOKING CESSATION COUNSELED FORMAL SLEEP STUDIES OUTPATIENT D/C PLANNING DR BETH
[2017-06-07] MEDS ORDERED: WARFARIN NA 7.5 MG TABLET (FP) PO SCH (14:30)
--- NOTE | 2017-06-08 10:15 | DS ---
Physical Examination Vital Signs: Vital Signs Temperature 98.7 F 06/07/17 10:00 Pulse Rate 97 H 06/07/17 10:00 Respiratory Rate 20 06/07/17 10:00 Blood Pressure 141/75 06/07/17 10:00 O2 Sat by Pulse Oximetry (%) 100 06/06/17 20:26 Constitutional: Yes: No Distress, Calm Eyes: Yes: EOM Intact HENT: Yes: Normocephalic Neck: Yes: Trachea Midline Cardiovascular: Yes: Regular Rate and Rhythm Respiratory: Yes: CTA Bilaterally Gastrointestinal: Yes: Normal Bowel Sounds, Soft Edema: Yes (left lower ext.) Labs: CBC, BMP 06/07/17 06:50 06/07/17 06:50 Discharge Summary Reason For Visit: DEEP VEIN THROMBOSIS (DVT) Hospital Course: admitted for new, unprovoked eft lower ext DVT and bilateral pulmonary embolism was on iv heparin and bridges to po warfarin will f/up as outpt for hypercoagulable work up and in 2 days for INR check Condition: Fair - Instructions Diet, Activity, Other Instructions: f/up in office on Wednesday 10-1 pm Referrals: Linn Lucia MD [Staff Physician] - Alexei Gallegos MD [Primary Care Provider] - Disposition: HOME - Home Medications Comprehensive Discharge Medication List: Ambulatory Orders Amlodipine Besylate [Norvasc -] 10 mg PO DAILY 05/30/17 Losartan Potassium [Cozaar -] 50 mg PO BID #60 tablet 06/07/17 Warfarin Na [Coumadin -] 7.5 mg PO DAILY@1800 #30 tablet 06/07/17
== END 2017-06-07 14:33 | disposition home or self-care (01) | DRG 299 ==
LOC: JER 22:31 → UNDOADMIN 05-31 00:31 → JERBED 05-31 00:31 → J6S 06-01 12:28
PROVIDERS: ADMIT Internal Medicine Nephrology; ATTEND Internal Medicine Nephrology
DX: I82.432 Acute embolism and thrombosis of left popliteal vein (principal); I26.99 Other pulmonary embolism without acute cor pulmonale; D68.69 Other thrombophilia; I10 Essential (primary) hypertension; F17.210 Nicotine dependence, cigarettes, uncomplicated; G47.33 Obstructive sleep apnea (adult) (pediatric); Z71.6 Tobacco abuse counseling; Z79.01 Long term (current) use of anticoagulants
CPT/HCPCS: 36415; 71275-TC; 80053; 82550; 82553; 84484; 85025; 85300; 85379; 85610; 85613; 85730; 85732; 87081; 93005; 93010; 93306-TC; 93971-TC; 99285-25; J1644

== ENCOUNTER 2017-11-06 22:24 | Emergency (ER) | payer BC ==
[2017-11-06 22:42] VITALS: BMI 41.8
--- NOTE | 2017-11-06 23:46 | PDOC ---
History of Present Illness - General Chief Complaint: Pain Stated Complaint: BACK PAIN Time Seen by Provider: 11/06/17 23:46 - History of Present Illness Initial Comments: 32 year old male with PMH of unprovoked PE and DVT a few months prior currently on warfarin with last INR check therapeutic 5 days prior presenting with positional and pleuritic posterior thoracic pain. States the pain is worse with deep inspiration and when twisting in specific directions. Denies SOB, tachycardia, or other symptoms. States he did miss one dose of warfarin yesterday. His father also had history of clots so he believes his hypercoagulability is genetic. 11/07/17 04:20 Past History - Past Medical History Allergies/Adverse Reactions: Allergies Allergy/AdvReac Type Severity Reaction Status Date / Time Iodine and Iodide Containing Allergy Verified 11/07/17 07:13 Produc lactose AdvReac Verified 11/06/17 22:39 Home Medications: Ambulatory Orders Amlodipine Besylate [Norvasc -] 10 mg PO DAILY 05/30/17 Losartan Potassium [Cozaar -] 50 mg PO BID #60 tablet 06/07/17 Azithromycin [Zithromax Tri-Alexander (3 DAYS) -] 500 mg PO DAILY #3 tablet 11/07/17 COPD: No HTN: Yes Other medical history: PE, DVT - Immunization History Td Vaccination: Yes Immunization Up to Date: Yes - Suicide/Smoking/Psychosocial Hx Smoking Status: Yes Smoking History: Never smoked Have you smoked in the past 12 months: No Number of Cigarettes Smoked Daily: 10 Information on smoking cessation initiated: No 'Breaking Loose' booklet given: 12/01/16 Hx Alcohol Use: No Drug/Substance Use Hx: No Substance Use Type: None Review of Systems - Review of Systems Constitutional: No: Chills, Diaphoresis, Fever, Loss of Appetite HEENTM: No: Eye Pain, Blurred Vision, Tearing Respiratory: No: Cough, Orthopnea, Shortness of Breath, SOB with Exertion Cardiac (ROS): No: Chest Pain, Edema, Irregular Heart Rate, Syncope, Chest Tightness ABD/GI: No: Diarrhea, Nausea, Poor Appetite, Vomiting : No: Burning, Dysuria, Discharge, Frequency Musculoskeletal: No: Back Pain, Joint Pain, Joint Swelling, Muscle Weakness Integumentary: No: Bruising, Change in Color, Change in Hair/Nails Neurological: No: Headache, Numbness, Paresthesia Psychiatric: No: Anxiety, Depression, Frequent Crying *Physical Exam - Vital Signs Last Vital Signs Temp Pulse Resp BP Pulse Ox 98.6 F 62 18 137/74 97 11/06/17 22:39 11/06/17 22:39 11/06/17 22:39 11/06/17 22:39 11/06/17 22:39 - Physical Exam General Appearance: Yes: Nourished, Appropriately Dressed. No: Apparent Distress HEENT: positive: EOMI, BANDAR, Normal ENT Inspection, Normal Voice Neck: positive: Trachea midline, Normal Thyroid, Supple. negative: Tender, Rigid Respiratory/Chest: positive: Lungs Clear, Normal Breath Sounds. negative: Chest Tender, Respiratory Distress, Accessory Muscle Use Cardiovascular: positive: Regular Rhythm, Regular Rate Gastrointestinal/Abdominal: positive: Normal Bowel Sounds, Flat, Soft. negative : Tender Lymphatic: negative: Adenopathy, Tenderness Musculoskeletal: positive: Normal Inspection. negative: CVA Tenderness Extremity: positive: Normal Capillary Refill, Normal Inspection, Normal Range of Motion. 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 Cr slightly elevated to 1.2 11/07/17 04:31 Patient admitted to itching during his previous CT with contrast so he was brought back from CT scan and we pre-medicated with 125 solumedrol + [address]. [address] scan went without incident and results were pending by the time I signed the patient out to Dr. Tse. 11/07/17 21:12 *DC/Admit/Observation/Transfer Diagnosis at time of Disposition: PNA (pneumonia) Qualifiers: Pneumonia type: due to unspecified organism Laterality: unspecified laterality Lung location: unspecified part of lung Qualified Code(s): J18.9 - Pneumonia, unspecified organism - Discharge Dispostion Disposition: HOME Condition at time of disposition: Good - Prescriptions Prescriptions: Azithromycin [Zithromax Tri-Alexander (3 DAYS) -] 500 mg PO DAILY #3 tablet - Referrals Referrals: Linn Lucia MD [Staff Physician] - - Patient Instructions Printed Discharge Instructions: DI for Atypical Pneumonia Additional Instructions: You were seen here for chest pain when you breath in We did a CT that showed you did not have another pulmonary embolism The CT however showed a likely pneumonia We are giving you azithromycin 500mg daily for 3 days Please take an extra half dose of your warfarin today We gave you one dose of a blood thinner called lovenox in the emergency room today Also check your INR at home Call your primary Doctor in the next 2-3 days to make an appointment If you feel your symptoms are worsening, please return to the emergency room - Post Discharge Activity
[2017-11-07 00:24] LABS: BASO % 0.8 % (0-2.0); EOS % 9.1 % (0-4.5); HEMATOCRIT 38.8 % (35.4-49); HEMOGLOBIN 13.4 GM/dL (11.7-16.9); LYMPH % 37.5 % (8-40); MCH 30.3 pg (25.7-33.7); MCHC 34.5 g/dl (32.0-35.9); MEAN CELL VOLUME 87.8 fl (80-96); MEAN PLT VOLUME 9.2 fl (7.5-11.1); NEUT % 42.6 % (42.8-82.8); PLATELET COUNT 206 K/MM3 (134-434); RBC 4.42 M/mm3 (4.00-5.60); RDW 13.8 % (11.9-15.9); WHITE BLOOD COUNT 7.2 K/mm3 (4.0-10.0)
[2017-11-07 00:36] LABS: INR 1.58 (0.82-1.09); PROTHROMBIN TIME (PATIENT) 17.8 SEC (9.7-13.0)
[2017-11-07 00:49] LABS: ALBUMIN 3.8 g/dl (3.4-5.0); BILIRUBIN,TOTAL 0.3 mg/dL (0.2-1.0); BLOOD UREA NITROGEN 27 mg/dL (7-18); CALCIUM 8.7 mg/dL (8.5-10.1); CO2 26 mmol/L (21-32); CREATININE 1.2 mg/dL (0.7-1.3); GLUCOSE,RANDOM 137 mg/dL (74-106); SGPT/ALT 39 U/L (12-78); TOT PROT 7.6 g/dl (6.4-8.2)
[2017-11-07] MEDS ORDERED: SODIUM CHLORIDE 0.9% 500 ML INFUS.BAG IV ONE (01:06)
[2017-11-07 01:18] LABS: ALK PHOS 71 U/L (45-117); ANION GAP 7 (8-16); CHLORIDE 104 mmol/L (98-107); SODIUM 137 mmol/L (136-145)
[2017-11-07 01:19] LABS: SGOT/AST 65 U/L (15-37)
--- NOTE | 2017-11-07 02:49 | PDOC ---
Attending Attestation - Resident Resident Name: Iglesia Chong - ED Attending Attestation I have performed the following: I have examined & evaluated the patient, The case was reviewed & discussed with the resident, I agree w/resident's findings & plan - HPI HPI: 11/07/17 06:43 Pt comes with SOB. - Physicial Exam PE: 11/07/17 06:43 Agree with resident exam - Medical Decision Making 11/07/17 06:43 Pt's labs are normal. CTA chest pending.
[2017-11-07] MEDS ORDERED: methylPREDNISolone NA SUCC 125 MG/2 ML VIAL IVPB ONE (04:11)
[2017-11-07] MEDS ORDERED: methylPREDNISolone NA SUCC 125 MG/2 ML VIAL ONE ×2 (04:20)
--- NOTE | 2017-11-07 07:09 | PDOC ---
*Physical Exam - Vital Signs Last Vital Signs Temp Pulse Resp BP Pulse Ox 98.4 F 77 14 133/76 99 11/07/17 06:49 11/07/17 06:49 11/07/17 06:49 11/07/17 06:49 11/07/17 06:49 11/07/17 07:04 Patient signed out to me by Dr Chong. Pt had CTA pending result. He is said to have allergy to IV contrast and was predosed with solumedrol and benadryl prior to the CTA. Plan is to inform Dr Mejia with the results. Most likely will mx out patient probably increase his warfarin dose. ED Treatment Course - LABORATORY CBC & Chemistry Diagram: 11/07/17 00:12 11/07/17 00:12 - ADDITIONAL ORDERS Additional order review: Laboratory Results 11/07/17 11/07/17 00:12 00:12 PT with INR 17.80 H INR 1.58 H D Sodium 137 Potassium 5.0 D Chloride 104 Carbon Dioxide 26 Anion Gap 7 L BUN 27 H D Creatinine 1.2 Creat Clearance w eGFR > 60 Random Glucose 137 H D Calcium 8.7 Total Bilirubin 0.3 D AST 65 H D ALT 39 D Alkaline Phosphatase 71 Total Protein 7.6 Albumin 3.8 11/07/17 00:12 RBC 4.42 MCV 87.8 MCHC 34.5 RDW 13.8 MPV 9.2 Neutrophils % 42.6 L Lymphocytes % 37.5 Monocytes % 10.0 Eosinophils % 9.1 H Basophils % 0.8 - Medications Given in the ED: ED Medications Discontinued Medications Generic Name Dose Route Start Last Admin Trade Name Freq PRN Reason Stop Dose Admin Diphenhydramine HCl 50 mg 11/07/17 04:11 11/07/17 04:34 Benadryl Injection - IVPUSH 11/07/17 04:12 50 mg ONCE ONE Administration Methylprednisolone Sodium Succinate 125 mg 11/07/17 04:11 11/07/17 05:10 Solu-Medrol - IVPB 11/07/17 04:12 125 mg ONCE ONE Administration Sodium Chloride 1,000 ml 11/07/17 01:06 11/07/17 01:26 Normal Saline - IV 11/07/17 01:07 1,000 ml ONCE ONE Administration Medical Decision Making - Medical Decision Making 11/07/17 08:57 CTA- negative for thoracic aortic aneurysm or dissection. Nonspecific groundglass opacities in the lower lobes bilaterally INR-1.58, patient normally takes 7.5mg of warfarin daily He will take one and a half tablet today Patient will be discharged on ZPak to follow up in clinic in a day 11/07/17 09:00 Had discussed one dose lovenox 100mg stat 11/07/17 09:06 *DC/Admit/Observation/Transfer Diagnosis at time of Disposition: PNA (pneumonia) - Discharge Dispostion Disposition: HOME Condition at time of disposition: Good Admit: No - Prescriptions Prescriptions: Azithromycin [Zithromax Tri-Alexander (3 DAYS) -] 500 mg PO DAILY #3 tablet - Referrals - Patient Instructions Printed Discharge Instructions: DI for Atypical Pneumonia Additional Instructions: You were seen here for chest pain when you breath in We did a CT that showed you did not have another pulmonary embolism The CT however showed a likely pneumonia We are giving you azithromycin 500mg daily for 3 days Please take an extra half dose of your warfarin today We gave you one dose of a blood thinner called lovenox in the emergency room today Also check your INR at home Call your primary Doctor in the next 2-3 days to make an appointment If you feel your symptoms are worsening, please return to the emergency room - Post Discharge Activity - Attestations Physician Attestion: 11/07/17 09:14 Gina Tse MD
--- NOTE | 2017-11-07 08:58 | PDOC ---
*Physical Exam - Vital Signs Last Vital Signs Temp Pulse Resp BP Pulse Ox 98.4 F 77 14 133/76 99 11/07/17 06:49 11/07/17 06:49 11/07/17 06:49 11/07/17 06:49 11/07/17 06:49 - Physical Exam Comments: 11/07/17 09:59 Gen: sleeping, easily arousable heart: +s1s2 reg Lungs: cta b/l abd: soft, nt/nd +bs Ext: no c/c/e Heart Score/ECG Review - ECG Intrepretation Comment:: 11/07/17 10:00 sinus at 70, nl axis, nl interval, no acute st/t wave findings ED Treatment Course - LABORATORY CBC & Chemistry Diagram: 11/07/17 00:12 11/07/17 00:12 - ADDITIONAL ORDERS Additional order review: Laboratory Results 11/07/17 11/07/17 00:12 00:12 PT with INR 17.80 H INR 1.58 H D Sodium 137 Potassium 5.0 D Chloride 104 Carbon Dioxide 26 Anion Gap 7 L BUN 27 H D Creatinine 1.2 Creat Clearance w eGFR > 60 Random Glucose 137 H D Calcium 8.7 Total Bilirubin 0.3 D AST 65 H D ALT 39 D Alkaline Phosphatase 71 Total Protein 7.6 Albumin 3.8 11/07/17 00:12 RBC 4.42 MCV 87.8 MCHC 34.5 RDW 13.8 MPV 9.2 Neutrophils % 42.6 L Lymphocytes % 37.5 Monocytes % 10.0 Eosinophils % 9.1 H Basophils % 0.8 - Medications Given in the ED: ED Medications Discontinued Medications Generic Name Dose Route Start Last Admin Trade Name Freq PRN Reason Stop Dose Admin Diphenhydramine HCl 50 mg 11/07/17 04:11 11/07/17 04:34 Benadryl Injection - IVPUSH 11/07/17 04:12 50 mg ONCE ONE Administration Methylprednisolone Sodium Succinate 125 mg 11/07/17 04:11 11/07/17 05:10 Solu-Medrol - IVPB 11/07/17 04:12 125 mg ONCE ONE Administration Sodium Chloride 1,000 ml 11/07/17 01:06 11/07/17 01:26 Normal Saline - IV 11/07/17 01:07 1,000 ml ONCE ONE Administration Medical Decision Making - Medical Decision Making 11/07/17 10:00 32yo male with hx of blood clots, on coumadin 7.5mg daily with sob and cp - signed out by overnight team pending cta chest -missed dose of coumadin INR subtherapeutic CTA negative for PE, no pain at this time feels better patchy ground glass opacity on ct - will give azithromycin, pt denies f/c, cough , congestion Resident discussed case with Dr. Elizabeth who recommends lovenox, azithro also, and increasing dose of coumadin today. will follow up with her this week for re-eval pt understands all instructions. stable for d/c ot home *DC/Admit/Observation/Transfer Diagnosis at time of Disposition: PNA (pneumonia) - Discharge Dispostion Disposition: HOME Condition at time of disposition: Good Admit: No - Prescriptions Prescriptions: Azithromycin [Zithromax Tri-Alexander (3 DAYS) -] 500 mg PO DAILY #3 tablet - Referrals Referrals: Linn Lucia MD [Staff Physician] - - Patient Instructions Printed Discharge Instructions: DI for Atypical Pneumonia Additional Instructions: You were seen here for chest pain when you breath in We did a CT that showed you did not have another pulmonary embolism The CT however showed a likely pneumonia We are giving you azithromycin 500mg daily for 3 days Please take an extra half dose of your warfarin today We gave you one dose of a blood thinner called lovenox in the emergency room today Also check your INR at home Call your primary Doctor in the next 2-3 days to make an appointment If you feel your symptoms are worsening, please return to the emergency room - Post Discharge Activity - Attestations Physician Attestion: 11/07/17 10:02 I, Dr. Vernell Blair, DO, attest that this document has been prepared under my direction and personally reviewed by me in its entirety. I further attest, that it accurately reflects all work, treatment, procedures and medical decision -making performed by me.
[2017-11-07] MEDS ORDERED: ENOXAPARIN NA (PORCINE) 100 MG/1 ML DISP.SYRIN SQ ONE ×2 (09:12→09:23)
[2017-11-07] MEDS ORDERED: AZITHROMYCIN 250 MG TABLET PO ONE (09:19)
[2017-11-07] MEDS ORDERED: AZITHROMYCIN 500 MG TABLET ONE (09:23)
[2017-11-07 09:38] VITALS: BP 139/86; PULSE 78; TEMP 97.7
--- NOTE | 2017-11-07 14:30 | EKG ---
Test Reason : Blood Pressure : / mmHG Vent. Rate : 070 BPM Atrial Rate : 070 BPM P-R Int : 168 ms QRS Dur : 104 ms QT Int : 380 ms P-R-T Axes : 051 017 019 degrees QTc Int : 410 ms NORMAL SINUS RHYTHM NORMAL ECG WHEN COMPARED WITH ECG OF 30-MAY-2017 23:44, SINUS RHYTHM HAS REPLACED ATRIAL FLUTTER Confirmed by MD Rose Daniel ([id number]) on 11/07/2017 2:29:48 PM Referred By: Confirmed By:Brian Rose MD
== END 2017-11-07 09:46 | disposition home or self-care (01) ==
LOC: JER 22:24
PROC: 3E0333Z Introduction of Anti-inflammatory into Peripheral Vein, Percutaneous Approach (ICD-10-PCS; principal; 2017-11-06)
PROC: 3E033GC Introduction of Other Therapeutic Substance into Peripheral Vein, Percutaneous Approach (ICD-10-PCS; 2017-11-06)
PROC: 3E013GC Introduction of Other Therapeutic Substance into Subcutaneous Tissue, Percutaneous Approach (ICD-10-PCS; 2017-11-06)
DX: J18.9 Pneumonia, unspecified organism (principal); I10 Essential (primary) hypertension; Z86.711 Personal history of pulmonary embolism; Z86.718 Personal history of other venous thrombosis and embolism; Z79.01 Long term (current) use of anticoagulants; Z91.041 Radiographic dye allergy status
CPT/HCPCS: 36415; 71275-TC; 80053; 85025; 85610; 93005; 93010; 99283-25

== ENCOUNTER 2020-10-13 17:49 | Emergency (ER) | payer BC ==
[2020-10-13 18:11] VITALS: BP 138/78; PULSE 64; TEMP 98.4; BMI 39.5
[2020-10-13 20:38] LABS: BASO % 0.5 % (0-2.0); EOS % 8.6 % (0-4.5); HEMATOCRIT 38.3 % (35.4-49); HEMOGLOBIN 12.9 GM/dL (11.7-16.9); LYMPH % 56.6 % (8-40); MCH 29.7 pg (25.7-33.7); MCHC 33.8 g/dl (32.0-35.9); MEAN CELL VOLUME 87.9 fl (80-96); MEAN PLT VOLUME 8.8 fl (7.5-11.1); MONO % 11.4 % (3.8-10.2); NEUT % 22.9 % (42.8-82.8); PLATELET COUNT 205 K/MM3 (134-434); RBC 4.36 M/mm3 (4.00-5.60); RDW 13.1 % (11.9-15.9); WHITE BLOOD COUNT 6.3 K/mm3 (4.0-10.0)
[2020-10-13 20:48] LABS: INR 1.62 (0.83-1.09); PROTHROMBIN TIME (PATIENT) 19.3 SEC (9.7-13.0)
[2020-10-13 20:51] LABS: ACTIVATED PTT 43.1 SECONDS (25.2-36.5)
[2020-10-13 20:52] LABS: CHLORIDE 107 mmol/L (98-107); SODIUM 138 mmol/L (136-145)
[2020-10-13 20:54] LABS: CALCIUM 8.5 mg/dL (8.5-10.1)
[2020-10-13 20:55] LABS: ALBUMIN 3.6 g/dl (3.4-5.0); ANION GAP 5 MMOL/L (8-16); BLOOD UREA NITROGEN 23.9 mg/dL (7-18); CO2 26 mmol/L (21-32); GLUCOSE,RANDOM 126 mg/dL (74-106)
[2020-10-13 20:58] LABS: SGOT/AST 33 U/L (15-37); SGPT/ALT 40 U/L (13-61)
[2020-10-13 21:00] LABS: BILIRUBIN,TOTAL 0.3 mg/dL (0.2-1); TOT PROT 6.8 g/dl (6.4-8.2)
[2020-10-13 21:01] LABS: ALK PHOS 60 U/L (45-117)
[2020-10-15 10:07] LABS: SARS-CoV-2 NAA Not Detected (Not Detected)
== END 2020-10-13 21:55 | disposition home or self-care (01) ==
LOC: JER 17:49
DX: R53.1 Weakness (principal)
CPT/HCPCS: 36415; 71046-TC-FY; 80053; 82550; 82553; 84484; 85025; 85610; 85730; 93005; 93010; 99284-25; C9803; U0003; U0005

== ENCOUNTER 2021-05-14 23:07 | Emergency (ER) | payer BC ==
[2021-05-14 23:25] VITALS: TEMP 97.8; BMI 39.5
[2021-05-14] MEDS ORDERED: ACETAMINOPHEN 500 MG TABLET (FP) PO ONE (23:47)
[2021-05-14] MEDS ORDERED: predniSONE 20 MG TABLET (UD) PO ONE (23:48)
[2021-05-14] MEDS ORDERED: FAMOTIDINE 10 MG TABLET PO ONE (23:48)
[2021-05-14] MEDS ORDERED: diphenhydrAMINE HCL 25 MG CAPSULE (FP) PO ONE (23:48)
[2021-05-15] MEDS ORDERED: FAMOTIDINE 10 MG TABLET ONE (00:09)
[2021-05-15] MEDS ORDERED: diphenhydrAMINE HCL 25 MG CAPSULE (FP) PO ONE (00:09)
[2021-05-15] MEDS ORDERED: predniSONE 20 MG TABLET (UD) ONE (00:09)
[2021-05-15] MEDS ORDERED: ACETAMINOPHEN 500 MG TABLET (FP) ONE (00:11)
[2021-05-15 00:52] LABS: EOS % 7.5 % (0-4.5); HEMOGLOBIN 15.4 GM/dL (11.7-16.9); LYMPH % 53.4 % (8-40); MCH 28.9 pg (25.7-33.7); MCHC 32.7 g/dl (32.0-35.9); MEAN CELL VOLUME 88.1 fl (80-96); MEAN PLT VOLUME 8.5 fl (7.5-11.1); MONO % 8.6 % (3.8-10.2); NEUT % 29.5 % (42.8-82.8); PLATELET COUNT 218 10^3/uL (134-434); RBC 5.34 M/mm3 (4.00-5.60); RDW 14.4 % (11.9-15.9); WHITE BLOOD COUNT 5.6 K/mm3 (4.0-10.0)
[2021-05-15 01:01] LABS: PROTHROMBIN TIME (PATIENT) 49.7 SEC (9.7-13.0)
[2021-05-15 01:03] LABS: ACTIVATED PTT 61.2 SECONDS (25.2-36.5)
[2021-05-15 01:14] LABS: CHLORIDE 107 mmol/L (98-107); SODIUM 140 mmol/L (136-145)
[2021-05-15 01:16] LABS: CALCIUM 8.8 mg/dL (8.5-10.1)
[2021-05-15 01:17] LABS: ALBUMIN 3.9 g/dl (3.4-5.0); ANION GAP 6 MMOL/L (8-16); BLOOD UREA NITROGEN 9.4 mg/dL (7-18); CO2 27 mmol/L (21-32); GLUCOSE,RANDOM 104 mg/dL (74-106)
[2021-05-15 01:20] LABS: CREATININE 1.1 mg/dL (0.55-1.3); SGOT/AST 32 U/L (15-37); SGPT/ALT 36 U/L (13-61)
[2021-05-15 01:21] LABS: BILIRUBIN,TOTAL 0.4 mg/dL (0.2-1); TOT PROT 8.1 g/dl (6.4-8.2)
[2021-05-15 01:22] LABS: ALK PHOS 67 U/L (45-117)
[2021-05-15 02:33] LABS: INR 4.19 (0.83-1.09)
[2021-05-15 03:24] VITALS: BP 162/111; PULSE 73
[2021-05-15] MEDS ORDERED: amLODIPine BESYLATE 10 MG TABLET (FP) PO ONE (03:32)
[2021-05-15] MEDS ORDERED: amLODIPine BESYLATE 5 MG TABLET (FP) ONE (03:35)
== END 2021-05-15 03:45 | disposition home or self-care (01) ==
LOC: JER 23:07
DX: J30.1 Allergic rhinitis due to pollen (principal); R42 Dizziness and giddiness
CPT/HCPCS: 36415; 70450-TC; 71045-TC-FY; 80053; 82550; 82553; 83735; 84484; 85025; 85610; 85730; 86850; 86900; 86901; 93005; 93010; 99285-25

== ENCOUNTER 2021-11-20 04:48 | Observation (INO) | payer SELFPAY ==
[2021-11-20 05:16] VITALS: TEMP 98.8; BMI 40.4
[2021-11-20 07:18] LABS: BASO % 0.7 % (0-2.0); EOS % 3.8 % (0-4.5); HEMATOCRIT 41.3 % (35.4-49); HEMOGLOBIN 13.9 GM/dL (11.7-16.9); LYMPH % 44.2 % (8-40); MCH 28.9 pg (25.7-33.7); MCHC 33.7 g/dl (32.0-35.9); MEAN CELL VOLUME 85.8 fl (80-96); MEAN PLT VOLUME 8.6 fl (7.5-11.1); MONO % 11.6 % (3.8-10.2); NEUT % 39.7 % (42.8-82.8); PLATELET COUNT 218 10^3/uL (134-434); RBC 4.82 M/mm3 (4.00-5.60); RDW 13.2 % (11.9-15.9); WHITE BLOOD COUNT 5.9 K/mm3 (4.0-10.0)
[2021-11-20 07:21] LABS: INR 1.46 (0.83-1.09); PROTHROMBIN TIME (PATIENT) 16.8 SEC (9.7-13.0)
[2021-11-20 07:23] LABS: ACTIVATED PTT 41.7 SECONDS (25.2-36.5)
[2021-11-20 07:29] LABS: ALBUMIN 3.9 g/dl (3.4-5.0); BLOOD UREA NITROGEN 12.9 mg/dL (7-18); CALCIUM 8.8 mg/dL (8.5-10.1)
[2021-11-20 07:34] LABS: BILIRUBIN,TOTAL 0.3 mg/dL (0.2-1); TOT PROT 7.6 g/dl (6.4-8.2)
[2021-11-20] MEDS ORDERED: methylPREDNISolone NA SUCC 125 MG/2 ML VIAL IVPUSH ONE (08:09)
[2021-11-20] MEDS ORDERED: methylPREDNISolone NA SUCC 125 MG/2 ML VIAL ONE (08:14)
[2021-11-20] MEDS ORDERED: LOSARTAN POTASSIUM 50 MG TABLET PO SCH (10:00)
[2021-11-20] MEDS ORDERED: amLODIPine BESYLATE 10 MG TABLET (FP) PO SCH (10:00)
[2021-11-20] MEDS ORDERED: ENOXAPARIN NA (PORCINE) 120 MG/0.8 ML DISP.SYRIN SQ SCH (10:00)
[2021-11-20 12:28] VITALS: BP 136/82; PULSE 82
[2021-11-20] MEDS ORDERED: WARFARIN NA 10 MG TABLET PO SCH (18:00)
== END 2021-11-20 12:46 | disposition home or self-care (01) ==
LOC: JER 04:48 → JERBED 08:20
PROVIDERS: ADMIT Internal Medicine; ATTEND Internal Medicine
PROC: 3E033GC Introduction of Other Therapeutic Substance into Peripheral Vein, Percutaneous Approach (ICD-10-PCS; principal; 2021-11-20)
DX: R20.0 Anesthesia of skin (principal); R20.2 Paresthesia of skin; Z79.01 Long term (current) use of anticoagulants; E66.01 Morbid (severe) obesity due to excess calories; Z68.41 Body mass index [BMI] 40.0-44.9, adult; Z86.711 Personal history of pulmonary embolism; Z91.041 Radiographic dye allergy status; Z91.040 Latex allergy status; I10 Essential (primary) hypertension; Z82.3 Family history of stroke
CPT/HCPCS: 36415; 70450-TC; 70551-TC; 71046-TC-FY; 72125-TC; 80053; 85025; 85610; 85730; 93005; 93010; 96374; 96375; 99285-25; G0378

== ENCOUNTER 2024-02-07 01:30 | Emergency (ER) | payer BC ==
[2024-02-07 01:41] VITALS: RESP 18; TEMP 98.3; BMI 37.8
[2024-02-07 02:34] LABS: BASO % 0.6 % (0-2.0); EOS % 3.4 % (0-4.5); HEMATOCRIT 44.7 % (35.4-49); HEMOGLOBIN 15.1 GM/dL (11.7-16.9); LYMPH % 30.1 % (8-40); MCH 29.9 pg (25.7-33.7); MCHC 33.8 g/dl (32.0-35.9); MEAN CELL VOLUME 88.4 fl (80-96); MEAN PLT VOLUME 8.1 fl (7.5-11.1); MONO % 11.4 % (3.8-10.2); NEUT % 54.5 % (42.8-82.8); PLATELET COUNT 263 10^3/uL (134-434); RBC 5.05 M/mm3 (4.00-5.60); RDW 13.8 % (11.9-15.9)
[2024-02-07 02:48] LABS: INR 2.52 (0.83-1.09); PROTHROMBIN TIME (PATIENT) 27.7 SEC (9.7-13.0)
[2024-02-07 02:50] LABS: ACTIVATED PTT 46.9 SECONDS (25.2-36.5)
[2024-02-07 03:18] VITALS: BP 158/100; PULSE 78
[2024-02-07 03:30] LABS: POTASSIUM 4.1 mmol/L (3.5-5.1)
[2024-02-07 03:34] LABS: ALBUMIN 3.8 g/dl (3.4-5.0); BLOOD UREA NITROGEN 10.5 mg/dL (7-18); CALCIUM 9.2 mg/dL (8.5-10.1)
[2024-02-07 03:39] LABS: BILIRUBIN,TOTAL 0.4 mg/dL (0.2-1); TOT PROT 7.8 g/dl (6.4-8.2)
[2024-02-07] MEDS ORDERED: CLINDAMYCIN HCL 150 MG CAPSULE (FP) ONE (04:05)
[2024-02-07] MEDS: CLINDAMYCIN HCL 300 MG CAPSULE PO ONE (04:09)
== END 2024-02-07 04:09 | disposition home or self-care (01) ==
LOC: JER 01:30
DX: L03.116 Cellulitis of left lower limb (principal); M79.662 Pain in left lower leg; M79.89 Other specified soft tissue disorders
CPT/HCPCS: 36415; 80053; 85025; 85610; 85730; 86850; 86900; 86901; 93005; 93010; 93971-TC; 99285-25

== ENCOUNTER 2024-03-03 04:13 | Emergency (ER) | payer BC ==
[2024-03-03 04:27] VITALS: BP 150/100; PULSE 84; RESP 18; TEMP 98.6; BMI 35.7
[2024-03-03] MEDS ORDERED: DALBAVANCIN HCL 500 MG VIAL (RESTRICTED TO ID ONLY) IVPB ONE (04:44)
[2024-03-03] MEDS: DALBAVANCIN HCL 1,500 MG in DEXTROSE 5%-WATER - 500 ML IVPB ONE (05:04)
[2024-03-03 07:30] LABS: HIV INTERPRETATION NEGATIVE (NEGATIVE)
== END 2024-03-03 06:32 | disposition home or self-care (01) ==
LOC: JER 04:13
DX: L03.116 Cellulitis of left lower limb (principal); M79.605 Pain in left leg
CPT/HCPCS: 36415; 86803; 87389; 99284-25; J0875

== ENCOUNTER 2025-01-05 12:58 | Emergency (ER) | payer BC ==
[2025-01-05 13:08] VITALS: BP 153/97; PULSE 78; RESP 20; TEMP 98.2; BMI 36.1
[2025-01-05 14:22] LABS: MCHC 32.5 g/dl (32.3-36.5); MEAN CELL VOLUME 89.1 fl (79.0-92.2); MEAN PLT VOLUME 10.1 fl (9.4-12.4); RDW 13.0 % (12.0-15.6)
[2025-01-05 14:35] LABS: INR 1.17 (0.83-1.09); PROTHROMBIN TIME (PATIENT) 12.8 SEC (9.7-13.0)
[2025-01-05 14:38] LABS: ACTIVATED PTT 34.8 SECONDS (25.2-36.5)
[2025-01-05 14:55] LABS: CO2 26.0 mmol/L (21-32); GLUCOSE,RANDOM 121.0 mg/dL (74-106)
[2025-01-05 14:57] LABS: CREATININE 1.2 mg/dL (0.55-1.3)
[2025-01-05 14:58] LABS: SGOT/AST 17.0 U/L (15-37); SGPT/ALT 21.0 U/L (13-61)
[2025-01-05 15:00] LABS: TOT PROT 7.8 g/dl (6.4-8.2)
[2025-01-05 15:01] LABS: ALK PHOS 80.0 U/L (45-117)
[2025-01-05 15:50] LABS: HCV DIAGNOSTIC IN-HOUSE W/RFLX NON-REACTIVE (NONREACTIVE); HIV INTERPRETATION NEGATIVE (NEGATIVE)
[2025-01-05] MEDS ORDERED: APIXABAN 5 MG TABLET ONE (17:23)
[2025-01-05] MEDS ORDERED: ACETAMINOPHEN 325 MG TABLET (FP) ONE (17:23)
[2025-01-05] MEDS: APIXABAN 5 MG TABLET PO ONE (17:25)
[2025-01-05] MEDS: ACETAMINOPHEN 325 MG TABLET (FP) PO ONE (17:25)
[2025-01-05] MEDS ORDERED: APIXABAN 5 MG TABLET PO SCH (22:00)
== END 2025-01-05 17:15 | disposition left against medical advice (07) ==
LOC: JER 12:58
DX: I82.432 Acute embolism and thrombosis of left popliteal vein (principal); R94.31 Abnormal electrocardiogram [ECG] [EKG]
CPT/HCPCS: 36415; 71046-TC-FY; 80053; 83735; 84484; 85025; 85610; 85730; 86803; 86850; 86900; 86901; 87389; 93005; 93010; 93971-TC; 99285-25